=== PATIENT | male | born 1965 | race Caucasian/White ===

== ENCOUNTER 2018-12-16 19:30 | Emergency (ER) | payer OTHER, MEDICAID, SELFPAY ==
[2018-12-16 19:36] VITALS: PULSE 63; RESP 18; TEMP 36.6; O2SAT 96; BMI 24.3
--- NOTE | 2018-12-16 19:40 | DI.RAD.S_ITS ---
PROCEDURE: XR CHEST 1V INDICATIONS: chest pain TECHNIQUE: One view of the chest was acquired. COMPARISON: [facility], , XR CXR 2 VIEW, 02/25/2005, 14:21. FINDINGS: Surgical changes and devices: None. Lungs and pleura: Lungs are clear. No pleural effusions or pneumothorax. Mediastinum: Mediastinal contours appear normal. Heart size is normal. Bones and chest wall: No suspicious bony lesions. Overlying soft tissues appear unremarkable. IMPRESSION: No acute pulmonary process. Dictated by: Aparna Meyers M.D. on 12/16/2018 at 20:28 Approved by: Aparna Meyers M.D. on 12/16/2018 at 20:28
--- NOTE | 2018-12-16 19:52 | ED.CHESTPAIN ---
HPI - Chest Pain General Chief Complaint: Chest Pain Stated Complaint: CHEST PAIN Time Seen by Provider: 12/16/18 19:49 Source: patient Mode of arrival: ambulatory Limitations: no limitations History of Present Illness HPI narrative: 53-year-old male comes to the emergency department with complaint of chest pain. Patient states he felt like he got hit against the chest with a 2 x 4. Patient states he has a history of hypertension but has not taken his blood pressure medications in 3 weeks. He also has a history of COPD. He states the he does fall down some because he drinks extensively so he does not think he had any trauma but he is not sure. He states he has always had shortness of breath that is not any worse. He felt a little clammy earlier but not now. He denies any nausea or vomiting. He denies any issues with bowel movements or urination. He has not had any prior MIs or strokes. He states his mom a heart attack at the age of 32 he states his dad in his shoulder of cancer. Patient states he has had surgeries for broken bones. states he smokes a half pack daily, drinks about a 5th of vodka plus daily, denies any marijuana or illicit. He has been very stressed recently as he had to move out of his house today and is living in a hotel with his and two dogs. Related Data Home Medications Medication Instructions Recorded Confirmed ibuprofen 800 mg PO Q6H PRN 12/16/18 12/16/18 Allergies Allergy/AdvReac Type Severity Reaction Status Date / Time No Known Drug Allergies Allergy Verified 12/16/18 19:36 Review of Systems Review of Systems ROS Unobtainable: All systems reviewed & are unremarkable except as noted in HPI and below PFSH Medical History (Updated 12/16/18 @ 20:35 by Ana Flood RN) Alcohol abuse (Acute) Smoker (Acute) Family History (Updated 12/16/18 @ 20:05 by Tiffanie Sorenson DO) Mother Heart attack Social History (Updated 12/16/18 @ 20:05 by Tiffanie Sorenson DO) Smoking Status: Current every day smoker alcohol intake: current substance use type: does not use Family History (Updated 12/16/18 @ 20:05 by Tiffanie Sorenson DO) Mother Heart attack Social History (Updated 12/16/18 @ 20:05 by Tiffanie Sorenson DO) Smoking Status: Current every day smoker alcohol intake: current substance use type: does not use Exam Narrative Exam Narrative: GENERAL: Alert and oriented x three, well-nourished, well-appearing male in mild distress. HEENT: Head normocephalic, atraumatic, EOMI, pupils reactive, face symmetric, moist mucous membranes NECK: Supple, full range of motion CARDIOVASCULAR: Regular rate and rhythm without murmurs, rubs or gallops. Chest is nontender, no rashes, ecchymosis or skin changes. RESPIRATORY: Breath sounds equal bilaterally, no wheezes rales or rhonchi. ABDOMEN: Soft, nontender. Normoactive bowel sounds all 4 quadrants. No guarding or rebound, rigidity, no mass : No CVA tenderness EXTREMITIES: Normal range of motion, no clubbing or edema. Neurovascularly intact NEUROLOGICAL: Cranial nerves II through XII grossly intact. Moving all extremities SKIN: Warm, dry, no petechiae, no rashes or lesions. Initial Vital Signs Initial Vital Signs: Vital Signs Temperature 97.8 F 12/16/18 19:36 Pulse Rate 63 12/16/18 19:36 Respiratory Rate 18 12/16/18 19:36 Pulse Oximetry 96 12/16/18 19:36 Course Orders Ordered: Discontinued Medications Aspirin (Aspirin Chew) 324 mg PO NOW ONE Stop: 12/16/18 19:41 Last Admin: 12/16/18 20:22 Dose: 324 mg Documented by: TONNYARRINGCLAUDIA Heparin Sodium (Porcine) (Heparin) 4,000 unit IV NOW ONE Stop: 12/16/18 20:30 Last Admin: 12/16/18 20:33 Dose: 4,000 unit Documented by: TONNYARRINGCLAUDAI Sodium Chloride (Normal Saline 0.9%) 1,000 mls @ 150 mls/hr IV CONT ANTHONY Last Infusion: 12/16/18 21:06 Dose: 0 mls/hr Documented by: Infusion: 12/16/18 20:34 Dose: 999 mls/hr Documented by: Admin: 12/16/18 20:24 Dose: 150 mls/hr Documented by: TONNYCLE[facility] VIEW BEHAVIORAL HEALTHCLAUDIA Heparin Sodium/Dextrose (Heparin Drip) 25,000 unit in 500 mls @ 18.507 mls/hr IV CONT ANTHONY; Protocol Last Titration: 12/16/18 21:10 Dose: 0 units/kg/hr, 0 mls/hr Documented by: TONNYARRINGTO Admin: 12/16/18 20:33 Dose: 12 units/kg/hr, 18.507 mls/hr Documented by: TONNYARRINGTO Nicotine (Nicoderm) 21 mg TOP NOW ONE Stop: 12/16/18 20:14 Last Admin: 12/16/18 20:24 Dose: 21 mg Documented by: TONNYARRINGTO Nitroglycerin (Nitrostat) 0.4 mg SL [id number] PRN PRN Reason: Chest Pain Last Admin: 12/16/18 20:24 Dose: 0.4 mg Documented by: TONNYARRINGTO Vital Signs Vital signs: Vital Signs - 8 hr 12/16/18 19:36 12/16/18 20:16 12/16/18 20:32 Temperature 97.8 F Pulse Rate 63 95 H Respiratory Rate 18 15 Blood Pressure [Right Arm] 141/102 H 105/87 Pulse Oximetry 96 95 12/16/18 20:37 Temperature Pulse Rate 97 H Respiratory Rate 21 Blood Pressure [Right Arm] 116/87 Pulse Oximetry 98 MDM - Chest Pain Lab Data Attestation: I reviewed the patient's lab results. Result diagrams: 12/16/18 19:40 12/16/18 19:40 Labs: Lab Results 12/16/18 12/16/18 12/16/18 Range/Units 19:40 19:40 20:46 WBC 9.7 (4.5-11.0) X10^3/uL RBC 4.09 L (4.5-5.9) X10^6/uL Hgb 14.4 (13.5-17.5) g/dL Hct 42.0 (41-53) % MCV 102.7 H (80-100) fL MCH 35.3 H (26-34) PG MCHC 34.4 (30-36) % RDW 13.8 (11.6-14.8) % Plt Count 193 (150-400) X10^3/uL Neut % (Auto) 47.2 L (50-75) % Lymph % (Auto) 36.8 (25-40) % [place] % (Auto) 8.8 (3-14) % Eos % (Auto) 6.0 H (2-4) % Baso % (Auto) 1.2 (0-2) % Neut # (Auto) 4600 (4506-6982) /uL Lymph # (Auto) 3600 (4503-6117) /uL [place] # (Auto) 900 (0-900) /uL Eos # (Auto) 600 H (0-450) /uL Baso # (Auto) 100 (0-100) /uL Sodium 145 (137-145) mmol/L Potassium 4.1 (3.4-5.1) mmol/L Chloride 109 H (98-107) mmol/L Carbon Dioxide 27 (22-32) mmol/L BUN 16 (9-20) mg/dL Creatinine 0.70 (0.66-1.25) mg/dL Estimated GFR > 60.0 (>60) mL/min BUN/Creatinine Ratio 22.9 H (6-22) Glucose 99 (70-100) mg/dL Calcium 9.0 (8.4-10.2) mg/dL Total Bilirubin 0.3 (0.2-1.3) mg/dL AST 34 (17-59) IU/L ALT 20 L (21-72) IU/L Alkaline Phosphatase 66 (38-126) U/L Total Creatine Kinase 210 H (55-170) U/L CK-MB (CK-2) 3.67 H (<2.37) ng/mL CK-MB (CK-2) Rel Index 1.7 (1.5-5.0) % Troponin I < 0.012 (0.01-0.034) ng/mL Total Protein 7.4 (6.3-8.2) g/dL Albumin 4.3 (3.5-5.0) g/dL Globulin 3.1 (1.7-4.1) g/dL Albumin/Globulin Ratio 1.4 (1.0-2.8) Lipase 233 (23-300) U/L Urine Color Yellow Urine Appearance Clear Urine pH 7.0 (4.5-8.0) Ur Specific [place] 1.010 (1.000-1.035) Urine Protein Negative (Negative) Urine Glucose (UA) Negative (Negative) g/dL Urine Ketones Negative (NEGATIVE) Urine Occult Blood Negative (Negative) Urine Nitrate Negative (Negative) Urine Bilirubin Negative (NEGATIVE) Urine Urobilinogen 0.2 (0.2) E.U./dL Ur Leukocyte Esterase Negative (NEGATIVE) Urine RBC None seen (0-5/HPF) Urine WBC None seen (0-5/HPF) Urine Bacteria None seen (None) Ur Culture Indicated? Cult not indicated Urine Opiates Screen (Negative) Ur Oxycodone Screen (Negative) Urine Methadone Screen (Negative) Ur Barbiturates Screen (Negative) U Tricyclic Antidepress (Negative) Ur Phencyclidine Scrn (Negative) Ur Amphetamines Screen (Negative) U Methamphetamines Scrn (Negative) Ur MDMA Scrn (Ecstasy) (Negative) U Benzodiazepines Scrn (Negative) Urine Cocaine Screen (Negative) U Marijuana (THC) Screen (Negative) 12/16/18 Range/Units 20:46 WBC (4.5-11.0) X10^3/uL RBC (4.5-5.9) X10^6/uL Hgb (13.5-17.5) g/dL Hct (41-53) % MCV (80-100) fL MCH (26-34) PG MCHC (30-36) % RDW (11.6-14.8) % Plt Count (150-400) X10^3/uL Neut % (Auto) (50-75) % Lymph % (Auto) (25-40) % [place] % (Auto) (3-14) % Eos % (Auto) (2-4) % Baso % (Auto) (0-2) % Neut # (Auto) (1752-8456) /uL Lymph # (Auto) (8344-4833) /uL [place] # (Auto) (0-900) /uL Eos # (Auto) (0-450) /uL Baso # (Auto) (0-100) /uL Sodium (137-145) mmol/L Potassium (3.4-5.1) mmol/L Chloride (98-107) mmol/L Carbon Dioxide (22-32) mmol/L BUN (9-20) mg/dL Creatinine (0.66-1.25) mg/dL Estimated GFR (>60) mL/min BUN/Creatinine Ratio (6-22) Glucose (70-100) mg/dL Calcium (8.4-10.2) mg/dL Total Bilirubin (0.2-1.3) mg/dL AST (17-59) IU/L ALT (21-72) IU/L Alkaline Phosphatase (38-126) U/L Total Creatine Kinase (55-170) U/L CK-MB (CK-2) (<2.37) ng/mL CK-MB (CK-2) Rel Index (1.5-5.0) % Troponin I (0.01-0.034) ng/mL Total Protein (6.3-8.2) g/dL Albumin (3.5-5.0) g/dL Globulin (1.7-4.1) g/dL Albumin/Globulin Ratio (1.0-2.8) Lipase (23-300) U/L Urine Color Urine Appearance Urine pH (4.5-8.0) Ur Specific [place] (1.000-1.035) Urine Protein (Negative) Urine Glucose (UA) (Negative) g/dL Urine Ketones (NEGATIVE) Urine Occult Blood (Negative) Urine Nitrate (Negative) Urine Bilirubin (NEGATIVE) Urine Urobilinogen (0.2) E.U./dL Ur Leukocyte Esterase (NEGATIVE) Urine RBC (0-5/HPF) Urine WBC (0-5/HPF) Urine Bacteria (None) Ur Culture Indicated? Urine Opiates Screen Negative (Negative) Ur Oxycodone Screen Negative (Negative) Urine Methadone Screen Negative (Negative) Ur Barbiturates Screen Negative (Negative) U Tricyclic Antidepress Negative (Negative) Ur Phencyclidine Scrn Negative (Negative) Ur Amphetamines Screen Negative (Negative) U Methamphetamines Scrn Negative (Negative) Ur MDMA Scrn (Ecstasy) Negative (Negative) U Benzodiazepines Scrn Negative (Negative) Urine Cocaine Screen Negative (Negative) U Marijuana (THC) Screen Negative (Negative) Imaging Data Chest x-ray: My impression: nap, no pneumothorax, no rib fractures. No pleural effusion. Radiologist's impression: Kory Payne 53 M [address] [address] XRay Report Signed Patient: [facility]Kory [facility]#: [id number] : 1965Acct:[id number] Age/Sex: 53 / MDate of Service: 12/16/18 Loc: ED Accession Number: [id number] Procedure: XR chest 1V Ordering Provider: Mank,Tiffanie C D.O. PROCEDURE: XR CHEST 1V INDICATIONS: chest pain TECHNIQUE: One view of the chest was acquired. COMPARISON: [facility], , XR CXR 2 VIEW, 02/25/2005, 14:21. FINDINGS: Surgical changes and devices: None. Lungs and pleura: Lungs are clear. No pleural effusions or pneumothorax. Mediastinum: Mediastinal contours appear normal. Heart size is normal. Bones and chest wall: No suspicious bony lesions. Overlying soft tissues appear unremarkable. IMPRESSION: No acute pulmonary process. Dictated by: Aparna Meyers M.D. on 12/16/2018 at 20:28 Approved by: Aparna Meyers M.D. on 12/16/2018 at 20:28 ECG Data Attestation: I personally reviewed and interpreted this ECG as follows: Prior ECG tracings: not available for review Interpretation: Sinus rhythm rate of 99 P are 149 QRS of [address] elevation V1 V2 and V3. On repeat EKG patient has rate of 90, pr 144 QRS of 106 and QTC [address] elevation in V1 2 and 3. MDM Narrative Medical decision making narrative: Spoke with patient, he does not want to be in the hospital tonight we had a long discussion regarding the fact that he is having a STEMI and the longer that he does not get a stent the more his heart will and he could potentially tonight. He is asking for us to talk with him and his who is walking here and is about 5 minutes away. Patient is reveals aspirin, he is initially refusing nitro sublingual. Heparin bolus was started 4000 unit is he is 77 kilos. His EKG was reviewed with Dr. Chavez who was on our Cardiology on-call list. She states it is a STEMI, she states she sent images to Dr. Muñoz who is on for also EKGs were faxed and I spoke with Dr. Jordan @ [facility]. After discussion with patient and his significant other, he is willing to transfer. Dr. Chavez and I discussed with her the reason for delay. Critical Care Time Critical Care Time Critical Care Time: Yes Total Critical Care Time: 45 Attestation: The high probability of a clinically significant, sudden or life threatening deterioration of the [cardiac] system(s) required my full and direct attention, intervention and personal management. The aggregate critical care time was [] minutes. This time is in addition to time spent performing reported procedures but includes the following: [x] Data Review and interpretation [x] Patient assessment and monitoring of vital signs [x] Documentation [x] Medication orders and management Discharge Plan Departure Patient Disposition: [facility] Clinical Impression: ST elevation myocardial infarction (STEMI) Discharge Date/Time: 12/16/18 21:14 Prescriptions: No Action ibuprofen 800 mg Tablet 800 mg PO Q6H PRN (Reason: Pain, Mild) RF: 0
[2018-12-16 20:00] LABS: Add Manual Diff / Slide Review NO; Basophils Absolute Auto 100 /uL (0-100); Basophils Percent Auto 1.2 % (0-2); Eosinophils Absolute Auto 600 /uL (0-450); Hemoglobin 14.4 g/dL (13.5-17.5); Lymphocytes Absolute Auto 3600 /uL (1100-4500); Lymphocytes Percent Auto 36.8 % (25-40); Mean Corpuscular HGB Conc 34.4 % (30-36); Mean Corpuscular Hemoglobin 35.3 PG (26-34); Mean Corpuscular Volume 102.7 fL (80-100); Monocytes Absolute Auto 900 /uL (0-900); Monocytes Percent Auto 8.8 % (3-14); Neutrophils Absolute Auto 4600 /uL (1500-7000); Neutrophils Percent Auto 47.2 % (50-75); Platelet Count 193 X10^3/uL (150-400); Red Blood Cell Count 4.09 X10^6/uL (4.5-5.9); Red Cell Distribution Width 13.8 % (11.6-14.8); White Blood Cell Count 9.7 X10^3/uL (4.5-11.0)
[2018-12-16 20:05] LABS: Alanine Aminotransferase 20 IU/L (21-72); Albumin 4.3 g/dL (3.5-5.0); Albumin Globulin Ratio 1.4 (1.0-2.8); Alkaline Phosphatase 66 U/L (38-126); Aspartate Aminotransferase 34 IU/L (17-59); BUN Creatinine Ratio 22.9 (6-22); Bilirubin Total 0.3 mg/dL (0.2-1.3); Blood Urea Nitrogen 16 mg/dL (9-20); Carbon Dioxide 27 mmol/L (22-32); Chloride 109 mmol/L (98-107); Creatine Kinase 210 U/L (55-170); Estimated Glomerular Filt Rate > 60.0 mL/min (>60); Globulin 3.1 g/dL (1.7-4.1); Glucose 99 mg/dL (70-100); HEMOLYSIS < 15 (0-50); Lipase 233 U/L (23-300); Potassium 4.1 mmol/L (3.4-5.1); Sodium 145 mmol/L (137-145); Total Protein 7.4 g/dL (6.3-8.2)
[2018-12-16 20:16] VITALS: BP 141/102
[2018-12-16 20:17] LABS: Troponin I < 0.012 ng/mL (0.01-0.034)
[2018-12-16 20:22] LABS: CKMB % Relative Index 1.7 % (1.5-5.0); Creatine Kinase MB 3.67 ng/mL (<2.37)
[2018-12-16] MEDS: ASPIRIN 81 MG CHEW TAB 324 MG PO (20:22)
[2018-12-16] MEDS: NICOTINE 21 MG PATCH TOP (20:24)
[2018-12-16] MEDS: SODIUM CHLORIDE 0.9% 1,000 ML 150 ML IV (20:24)
[2018-12-16] MEDS: NITROGLYCERIN 0.4 MG SL TAB SL (20:24)
[2018-12-16 20:32] VITALS: BP 105/87; PULSE 95; RESP 15; O2SAT 95
[2018-12-16] MEDS: HEPARIN DRIP 25,000 UNIT/500 ML IV.SOLN 18.507 UNIT IV (20:33)
[2018-12-16] MEDS: HEPARIN 5,000 UNIT/ML VIAL 4000 UNIT IV (20:33)
[2018-12-16 20:37] VITALS: BP 116/87; PULSE 97; RESP 21; O2SAT 98
[2018-12-16 20:39] VITALS: BP 115/84; PULSE 96; RESP 15; O2SAT 95
[2018-12-16 20:50] VITALS: BP 130/87; PULSE 87; RESP 16; O2SAT 96
[2018-12-16 21:00] LABS: Bacteria Urine None Seen; RBC Urine None Seen (0-5/HPF); WBC Urine None Seen (0-5/HPF)
[2018-12-16 21:01] LABS: Appearance Urine UA CLEAR; Bilirubin Urine UA NEGATIVE (NEGATIVE); Color Urine UA YELLOW; Glucose Urine UA NEGATIVE (Negative); Ketones Urine UA NEGATIVE (NEGATIVE); Leukocyte Esterase Urine UA NEGATIVE (NEGATIVE); Nitrite Urine UA NEGATIVE (Negative); Occult Blood Urine UA NEGATIVE (Negative); Protein Urine UA NEGATIVE (Negative); Urobilinogen Urine UA 0.2 E.U./dL (0.2)
[2018-12-16 21:08] LABS: Urine Tetrahydrocannabinol Negative (Negative)
[2018-12-16 21:09] LABS: Culture Indicated Urine Cult Not Indicated; Urine Amphetamines Negative (Negative); Urine Barbiturates Negative (Negative); Urine Benzodiazepines Negative (Negative); Urine Cocaine Negative (Negative); Urine MDMA Negative (Negative); Urine Methadone Negative (Negative); Urine Methamphetamines Negative (Negative); Urine Morphine/Opi cutoff 2000 Negative (Negative); Urine Oxycodone Negative (Negative); Urine Phencyclidine Negative (Negative); Urine Tricyclic Antidepressant Negative (Negative)
--- NOTE | 2018-12-16 21:13 | PC.NURSE ---
pt transferred to [facility] bundle tier and labeler via ambulance, d/c'd with fluid bolus and heparin drip running for transport
== END 2018-12-16 21:14 | disposition short-term general hospital (02) ==
PROVIDERS: Emergency Provider Emergency Medicine
DX: I21.3 ST elevation (STEMI) myocardial infarction of unspecified site (principal)
CPT/HCPCS: 36591; 71045; 80053; 80305; 81001; 82550; 82553; 83690; 84484; 85025; 93005; 96365; 96375; 99285; 99291; J1644

== ENCOUNTER 2019-05-20 08:22 | Emergency (ER) | payer SELFPAY ==
[2019-05-20 08:30] VITALS: BP 144/97; PULSE 107; RESP 19; TEMP 36.9; O2SAT 100
--- NOTE | 2019-05-20 08:35 | ED.GENADULT ---
HPI - General Adult General Chief complaint: Dental/Oral Stated complaint: Rt side tooth ache, cold symptoms [id number] Time Seen by Provider: 05/20/19 08:25 Source: patient Mode of arrival: Ambulatory Limitations: no limitations History of Present Illness HPI narrative: 53-year-old male with known poor dentition states that his dental insurance will kick in at the end of this week. Has had dental infections in the past. He also states that he has had ?flu-like symptoms? for the past month. Has not tried anything for his dental issues. Related Data Home Medications Medication Instructions Recorded Confirmed ibuprofen 800 mg PO Q6H PRN 12/16/18 12/16/18 Previous Rx's Medication Instructions Recorded albuterol sulfate 2 puff INHALATION QID PRN #18 gram 05/20/19 penicillin V potassium 500 mg PO QID 7 Days #28 tab 05/20/19 Allergies Allergy/AdvReac Type Severity Reaction Status Date / Time No Known Drug Allergies Allergy Verified 05/20/19 08:33 Review of Systems Constitutional Constitutional: Reports fatigue and Reports fever(s) (Subjective) ENT Ears, Nose, Mouth, and Throat: Denies sore throat Comments: Right lower dental pain Cardiovascular Cardiovascular: Denies chest pain, Denies palpitations and Denies dyspnea Respiratory Respiratory: Denies dyspnea Gastrointestinal Gastrointestinal: Denies abdominal pain and Denies nausea Musculoskeletal Musculoskeletal: Denies myalgias and Denies arthralgias Integumentary/Breasts Skin/Breast: Denies rash Endocrine Endocrine: Reports fatigue and Denies palpitations Hematologic/Lymphatic Hematologic/Lymphatic: Denies easy bruising Patient History Medical History Alcohol abuse (Acute) Smoker (Acute) Family History (Updated 12/16/18 @ 20:05 by Tiffanie Sorenson DO) Mother Heart attack Social History Smoking Status: Current every day smoker alcohol intake: current substance use type: does not use Smoking Status: Current every day smoker tobacco type: cigarettes alcohol intake frequency: 3 or more drinks per day Substance Use Type: does not use Exam Initial Vital Signs Initial Vital Signs: Vital Signs Temperature 98.5 F 05/20/19 08:30 Pulse Rate 107 H 05/20/19 08:30 Respiratory Rate 19 05/20/19 08:30 Blood Pressure 144/97 H 05/20/19 08:30 Pulse Oximetry 100 05/20/19 08:30 Const General: cooperative and comfortable Limitations: mental status not altered HENMT Head: normal to inspection and normocephalic Mouth: oral mucosae normal and moist mucous membranes Teeth and gingiva: caries and poor dentition Resp Effort & Inspection: normal respiratory effort Auscultation: clear to auscultation bilaterally Cardio Rate: tachycardic GI Inspection: non-distended Palpation: soft Skin Lesions: no lesions Rashes: no rashes Neuro General: alert, awake and oriented x3 Cognition: normal cognition Speech: speech normal Extrem General: normal to inspection and capillary refill normal Course Vital Signs Vital signs: Vital Signs - 8 hr 05/20/19 08:30 Temperature 98.5 F Pulse Rate 107 H Respiratory Rate 19 Blood Pressure 144/97 H Pulse Oximetry 100 Medical Decision Making MDM Narrative Medical decision making narrative: No defined abscess seen on exam. Does have poor dentition with fractured teeth. Will send home with antibiotics. He states that he has insurance kicking and at the end of next week. Also refilled his albuterol inhaler. Has a history of COPD. Lungs are clear today. Patient was given return precautions. He expressed understanding and agreement with plan. Discharge Plan Departure Patient Disposition: Home Clinical Impression: Fracture of tooth Qualifiers: Encounter type: initial encounter Instructions: Tooth Decay Prevention (Alternative Therapy), Tooth Decay Activity Restrictions/Additional Instructions: Take the medications as directed. You do need to see a dentist. You can take Tylenol and/or ibuprofen for any pain. Return to the emergency department for any new or worsening symptoms Prescriptions: New albuterol sulfate 90 mcg/actuation HFA aerosol inhaler 2 puff INHALATION QID PRN (Reason: shortness of breath or wheezing) Qty: 18 RF: 0 penicillin V potassium 500 mg tablet 500 mg PO QID 7 Days Qty: 28 RF: 0 No Action ibuprofen 800 mg Tablet 800 mg PO Q6H PRN (Reason: Pain, Mild) RF: 0
== END 2019-05-20 09:13 | disposition home or self-care (01) ==
LOC: ED 09:03
PROVIDERS: Emergency Provider Emergency Medicine
DX: S02.5XXA Fracture of tooth (traumatic), initial encounter for closed fracture (principal)
CPT/HCPCS: 99281; 99283

== ENCOUNTER 2019-07-01 09:17 | Emergency (ER) | payer OTHER, SELFPAY ==
[2019-07-01 09:25] VITALS: BP 173/110; PULSE 89; RESP 20; TEMP 36.7; O2SAT 97; BMI 24.3
--- NOTE | 2019-07-01 09:58 | DI.RAD.S_ITS ---
PROCEDURE: XR CHEST 1V INDICATIONS: COPD, [place], SOB, Cough TECHNIQUE: One view of the chest was acquired. COMPARISON: [facility], RG, XR CXR 2 VIEW, 02/25/2005, 14:21. [facility], CR, XR CHEST 1V, 12/16/2018, 19:55. FINDINGS: Surgical changes and devices: None. Lungs and pleura: Lungs are clear. No pleural effusions or pneumothorax. Mediastinum: Mediastinal contours appear normal. Heart size is normal. Bones and chest wall: No suspicious bony lesions. Overlying soft tissues appear unremarkable. IMPRESSION: Portable chest within normal limits. Dictated by: Gerard Pratt M.D. on 07/01/2019 at 10:03 Approved by: Gerard Pratt M.D. on 07/01/2019 at 10:04
--- NOTE | 2019-07-01 09:59 | ED.URI ---
HPI - URI/Sore Throat General Chief Complaint: Upper Respiratory Symptoms Stated Complaint: possible covid19 virus Time Seen by Provider: 07/01/19 09:42 Source: patient Mode of arrival: Ambulatory History of Present Illness HPI Narrative: The patient is a 54-year-old male comes in to the emergency department complaining of shortness of breath with dyspnea on exertion. He has developed progressive weakness and fatigue and feels as though his legs were going to collapse. He admits to history of smoking cigarettes and a longstanding history of COPD. The patient has had worse shortness of breath and difficulty in breathing over the last 4 days prior to admission. Most of the shortness of breath is with exertion. He admits to drinking alcohol. He has had no fever or sweats but has had intermittent chills. He is very concerned because he works in food production and was told that if he had any of the symptoms he needed to leave work and be examined. He complains that his bones feel like they are aching and that his teeth even ache. He denies that he has had any travel outside of the [place], any new or high fever, and he has not been exposed to anyone that he knows has arm covered 19. He has had some mild headache with sinus congestion no significant sore throat. His cough is intermittently productive of a clear sputum. He has had mild chest discomfort with coughing. He has not passed out but has had some mild dizziness with racing of his heart. He has had mild abdominal cramps with nausea mild diarrhea without melena or hematochezia but no vomiting. He has had no urinary symptoms. Related Data Home Medications Medication Instructions Recorded Confirmed ibuprofen 800 mg PO Q6H PRN 12/16/18 12/16/18 Previous Rx's Medication Instructions Recorded albuterol sulfate 2 puff INHALATION QID PRN #18 gram 05/20/19 albuterol sulfate 2 puff INHALATION Q4-6H PRN #8.5 07/01/19 gram doxycycline hyclate 100 mg PO BID #14 cap 07/01/19 prednisone 60 mg PO DAILY #15 tab 07/01/19 Allergies Allergy/AdvReac Type Severity Reaction Status Date / Time No Known Drug Allergies Allergy Verified 05/20/19 08:33 Review of Systems Review of Systems Narrative: Review of systems are all negative except for those mentioned in the history of present illness. Patient History Medical History Alcohol abuse (Acute) Smoker (Acute) Family History Mother Heart attack Social History Smoking Status: Former smoker alcohol intake: current substance use type: does not use Smoking Status: Former smoker tobacco type: cigarettes alcohol intake frequency: 3 or more drinks per day Alcohol type: hard liquor Substance Use Type: does not use Exam Narrative Exam Narrative: PHYSICAL EXAM: CONSTITUTIONAL: Awake, Alert, Oriented, Coherent, Cooperative in NAD. Does not appear toxic or ill. HEAD: AT/NC EENT: PERRL, FROM of eyes, no discharge, Oral mucosa is moist and pink, posterior pharynx is without erythema or exudate. NECK: Supple, no obvious JVD, Trachea is midline without stridor, no palpable LN or masses. SPINE: No gross deformity, no palpable tenderness of the cervical, thoracic, lumbar or sacral spine. No CVA tenderness. THORAX: No deformity, retractions, chest wall tenderness, LUNGS: Markedly decreased breath sounds bilaterally with inspiratory squeaks and wheezes and a few scattered expiratory wheezes and rhonchi. HEART: Normal heart tones, regular rhythm and rate without murmur. ABDOMEN: Soft, non-tender, normal bowel sounds without guarding, rebound, rigidity or palpable mass or organomegaly. EXTREMITIES: No edema, cyanosis, deformity or tenderness. SKIN: No rash, bruising, petechiae or purpura. NEURO: Awake, alert, oriented, conversive, cranial nerves II-XII are symmetrical and normal, moves all 4 extremities and is ambulatory Initial Vital Signs Initial Vital Signs: Vital Signs Temperature 98.0 F 07/01/19 09:25 Pulse Rate 89 07/01/19 09:25 Respiratory Rate 20 07/01/19 09:25 Blood Pressure 173/110 H 07/01/19 09:25 Pulse Oximetry 97 07/01/19 09:25 Course Course Course Narrative: 12:04 Patient's influenza swabs remain pending. Chest x-ray reveals no evidence of a pneumonia. 1221: The patient's influenza a and B are both negative. A respiratory panel will be sent off on the patient as well as Covid 19. The patient will be treated as though he is having a flare-up of his COPD and will be placed in self quarantine for the next 5 days and to follow-up with his primary care physician for the results of his respiratory panel and Covid 19. He will be given a work excuse for the next 5 days. Orders Ordered: Discontinued Medications Albuterol/Ipratropium (Duoneb) 3 ml INH NOW ONE Stop: 07/01/19 09:58 Last Admin: 07/01/19 11:04 Dose: 3 ml Documented by: DONTE Methylprednisolone (Solu-Medrol 125 Mg Vial) 125 mg IV NOW ONE Stop: 07/01/19 09:58 Last Admin: 07/01/19 12:39 Dose: Not Given Documented by: ASHLEY Nicotine (Nicoderm) 21 mg TOP NOW ONE Stop: 07/01/19 11:19 Last Admin: 07/01/19 11:28 Dose: 21 mg Documented by: ASHLEY Vital Signs Vital signs: Vital Signs - 8 hr 07/01/19 09:25 07/01/19 11:04 Temperature 98.0 F Pulse Rate 89 86 Respiratory Rate 20 20 Blood Pressure 173/110 H Pulse Oximetry 97 98 MDM - URI/Sore Throat Lab Data Result diagrams: 07/01/19 11:03 07/01/19 11:03 Labs: Lab Results 07/01/19 07/01/19 07/01/19 Range/Units 11:03 11:03 11:03 WBC 8.3 (4.5-11.0) X10^3/uL RBC 4.29 L (4.5-5.9) X10^6/uL Hgb 14.9 (13.5-17.5) g/dL Hct 43.8 (41-53) % MCV 102.0 H (80-100) fL MCH 34.7 H (26-34) PG MCHC 34.0 (30-36) % RDW 13.6 (11.6-14.8) % Plt Count 174 (150-400) X10^3/uL Neut % (Auto) 48.6 L (50-75) % Lymph % (Auto) 29.3 (25-40) % [place] % (Auto) 15.2 H (3-14) % Eos % (Auto) 5.7 H (2-4) % Baso % (Auto) 1.2 (0-2) % Neut # (Auto) 4000 (0005-1142) /uL Lymph # (Auto) 2400 (9714-7551) /uL [place] # (Auto) 1300 H (0-900) /uL Eos # (Auto) 500 H (0-450) /uL Baso # (Auto) 100 (0-100) /uL Sodium 143 (137-145) mmol/L Potassium 4.0 (3.4-5.1) mmol/L Chloride 106 (98-107) mmol/L Carbon Dioxide 27 (22-32) mmol/L BUN 11 (9-20) mg/dL Creatinine 0.54 L (0.66-1.25) mg/dL Estimated GFR > 60.0 (>60) mL/min BUN/Creatinine Ratio 20.4 (6-22) Glucose 98 (70-100) mg/dL Calcium 9.8 (8.4-10.2) mg/dL Total Bilirubin 0.4 (0.2-1.3) mg/dL AST 47 (17-59) IU/L ALT 25 (<50) IU/L Alkaline Phosphatase 73 (38-126) U/L Total Protein 7.9 (6.3-8.2) g/dL Albumin 4.5 (3.5-5.0) g/dL Globulin 3.4 (1.7-4.1) g/dL Albumin/Globulin Ratio 1.3 (1.0-2.8) Chlamy pneumoniae PCR (Not Detect) Adenovirus (PCR) (Not Detect) B.parapertussis DNA PCR (Not Detect) Coronavirus OC43 (PCR) (Not Detect) Coronavirus HKU1 (PCR) (Not Detect) Coronavirus 229E (PCR) (Not Detect) Coronavirus NL63 (PCR) (Not Detect) Human Metapneumovir PCR (Not Detect) Influenza A (RT-PCR) Flu a negative (NEGATIVE) Influenza Type A (PCR) (Not Detect) Influenza B (RT-PCR) Flu b negative (NEGATIVE) Influenza Type B (PCR) (Not Detect) M. pneumoniae (PCR) (Not Detect) Parainfluenza 1 (PCR) (Not Detect) Parainfluenza 2 (PCR) (Not Detect) Parainfluenza 3 (PCR) (Not Detect) Parainfluenza 4 (PCR) (Not Detect) RSV (PCR) (Not Detect) Entero/Rhino (PCR) (Not Detect) 07/01/19 Range/Units 11:36 WBC (4.5-11.0) X10^3/uL RBC (4.5-5.9) X10^6/uL Hgb (13.5-17.5) g/dL Hct (41-53) % MCV (80-100) fL MCH (26-34) PG MCHC (30-36) % RDW (11.6-14.8) % Plt Count (150-400) X10^3/uL Neut % (Auto) (50-75) % Lymph % (Auto) (25-40) % [place] % (Auto) (3-14) % Eos % (Auto) (2-4) % Baso % (Auto) (0-2) % Neut # (Auto) (6696-2703) /uL Lymph # (Auto) (6222-5368) /uL [place] # (Auto) (0-900) /uL Eos # (Auto) (0-450) /uL Baso # (Auto) (0-100) /uL Sodium (137-145) mmol/L Potassium (3.4-5.1) mmol/L Chloride (98-107) mmol/L Carbon Dioxide (22-32) mmol/L BUN (9-20) mg/dL Creatinine (0.66-1.25) mg/dL Estimated GFR (>60) mL/min BUN/Creatinine Ratio (6-22) Glucose (70-100) mg/dL Calcium (8.4-10.2) mg/dL Total Bilirubin (0.2-1.3) mg/dL AST (17-59) IU/L ALT (<50) IU/L Alkaline Phosphatase (38-126) U/L Total Protein (6.3-8.2) g/dL Albumin (3.5-5.0) g/dL Globulin (1.7-4.1) g/dL Albumin/Globulin Ratio (1.0-2.8) Chlamy pneumoniae PCR Not detected (Not Detect) Adenovirus (PCR) Not detected (Not Detect) B.parapertussis DNA PCR Not detected (Not Detect) Coronavirus OC43 (PCR) Not detected (Not Detect) Coronavirus HKU1 (PCR) Not detected (Not Detect) Coronavirus 229E (PCR) Not detected (Not Detect) Coronavirus NL63 (PCR) Not detected (Not Detect) Human Metapneumovir PCR Not detected (Not Detect) Influenza A (RT-PCR) (NEGATIVE) Influenza Type A (PCR) Not detected (Not Detect) Influenza B (RT-PCR) (NEGATIVE) Influenza Type B (PCR) Not detected (Not Detect) M. pneumoniae (PCR) Not detected (Not Detect) Parainfluenza 1 (PCR) Not detected (Not Detect) Parainfluenza 2 (PCR) Not detected (Not Detect) Parainfluenza 3 (PCR) Not detected (Not Detect) Parainfluenza 4 (PCR) Not detected (Not Detect) RSV (PCR) Not detected (Not Detect) Entero/Rhino (PCR) Not detected (Not Detect) Discharge Plan Departure Patient Disposition: Home Clinical Impression: Acute dyspnea, Cough, COPD exacerbation Discharge Date/Time: 07/01/19 12:47 Instructions: DI for Chronic Obstructive Pulmonary Disease, DI for Cough -- Adult, DI for Shortness of Breath Activity Restrictions/Additional Instructions: 1. Off work for the next 5 days on self quarantine. Of 5 day work excuse 2. Follow-up with your primary care physician to be re-evaluated in 4-5 days and to receive the results of your respiratory panel and covered 19 swab. 3. Prednisone 60 mg per day for the next 5 days, albuterol inhaler, doxycycline 100 mg twice a day for the next 7 days. 4. Return to the emergency department if you develop worsening chest pain, racing of your heart, feeling faint or passing out, high fever. Otherwise follow-up with your primary care physician. Prescriptions: New albuterol sulfate 90 mcg/actuation HFA aerosol inhaler 2 puff INHALATION Q4-6H PRN (Reason: shortness of breath or wheezing) Qty: 8.5 RF: 0 prednisone 20 mg tablet 60 mg PO DAILY Qty: 15 RF: 0 doxycycline hyclate 100 mg capsule 100 mg PO BID Qty: 14 RF: 0 No Action albuterol sulfate 90 mcg/actuation HFA aerosol inhaler 2 puff INHALATION QID PRN (Reason: shortness of breath or wheezing) Qty: 18 RF: 0 ibuprofen 800 mg Tablet 800 mg PO Q6H PRN (Reason: Pain, Mild) RF: 0 Stand Alone Forms: Work Release Note
[2019-07-01 11:04] VITALS: PULSE 86; RESP 20; O2SAT 98
[2019-07-01] MEDS: ALBUTEROL/IPRATROPIUM 3 ML AMPUL INH (11:04)
[2019-07-01 11:16] LABS: Add Manual Diff / Slide Review NO; Basophils Absolute Auto 100 /uL (0-100); Basophils Percent Auto 1.2 % (0-2); Eosinophils Absolute Auto 500 /uL (0-450); Eosinophils Percent Auto 5.7 % (2-4); Hematocrit 43.8 % (41-53); Hemoglobin 14.9 g/dL (13.5-17.5); Lymphocytes Absolute Auto 2400 /uL (1100-4500); Lymphocytes Percent Auto 29.3 % (25-40); Mean Corpuscular Hemoglobin 34.7 PG (26-34); Monocytes Absolute Auto 1300 /uL (0-900); Monocytes Percent Auto 15.2 % (3-14); Neutrophils Absolute Auto 4000 /uL (1500-7000); Neutrophils Percent Auto 48.6 % (50-75); Platelet Count 174 X10^3/uL (150-400); Red Blood Cell Count 4.29 X10^6/uL (4.5-5.9); Red Cell Distribution Width 13.6 % (11.6-14.8); White Blood Cell Count 8.3 X10^3/uL (4.5-11.0)
[2019-07-01] MEDS: NICOTINE 21 MG PATCH TOP (11:28)
[2019-07-01 11:32] LABS: Alanine Aminotransferase 25 IU/L (<50); Albumin 4.5 g/dL (3.5-5.0); Albumin Globulin Ratio 1.3 (1.0-2.8); Alkaline Phosphatase 73 U/L (38-126); Aspartate Aminotransferase 47 IU/L (17-59); BUN Creatinine Ratio 20.4 (6-22); Bilirubin Total 0.4 mg/dL (0.2-1.3); Blood Urea Nitrogen 11 mg/dL (9-20); Calcium 9.8 mg/dL (8.4-10.2); Carbon Dioxide 27 mmol/L (22-32); Chloride 106 mmol/L (98-107); Estimated Glomerular Filt Rate > 60.0 mL/min (>60); Globulin 3.4 g/dL (1.7-4.1); Glucose 98 mg/dL (70-100); HEMOLYSIS 36 (0-50); Sodium 143 mmol/L (137-145); Total Protein 7.9 g/dL (6.3-8.2)
[2019-07-01 12:01] LABS: Influenza A - CEPHEID Flu A NEGATIVE (NEGATIVE); Influenza B - CEPHEID Flu B NEGATIVE (NEGATIVE)
[2019-07-01 12:46] VITALS: BP 156/103; PULSE 85; RESP 18; O2SAT 99
[2019-07-01 17:02] LABS: Adenovirus Not Detected (Not Detect); Bordetella pertussis Not Detected (Not Detect); Chlamydophila pneumoniae Not Detected (Not Detect); Coronavirus 229E Not Detected (Not Detect); Coronavirus HKU1 Not Detected (Not Detect); Coronavirus NL 63 Not Detected (Not Detect); Coronavirus OC43 Not Detected (Not Detect); Human Metapneumovirus Not Detected (Not Detect); Human Rhinovirus/Enterovirus Not Detected (Not Detect); Influenza A Not Detected (Not Detect); Influenza B Not Detected (Not Detect); Mycoplasma pneumoniae Not Detected (Not Detect); Parainfluenza Virus 1 Not Detected (Not Detect); Parainfluenza Virus 2 Not Detected (Not Detect); Parainfluenza Virus 3 Not Detected (Not Detect); Parainfluenza Virus 4 Not Detected (Not Detect); Respiratory Syncytial Virus Not Detected (Not Detect)
[2019-07-06 08:35] LABS: COVID19 Sendout Not Detected (Not Detected)
== END 2019-07-01 12:47 | disposition home or self-care (01) ==
PROVIDERS: Emergency Provider Emergency Medicine
DX: Z03.818 Encounter for observation for suspected exposure to other biological agents ruled out (principal); R06.00 Dyspnea, unspecified; R05 Cough; J44.1 Chronic obstructive pulmonary disease with (acute) exacerbation
CPT/HCPCS: 36415; 71045; 80053; 85025; 87502; 87633; 87635; 94640; 99284

== ENCOUNTER 2019-07-15 21:21 | Emergency (ER) | payer OTHER, SELFPAY ==
[2019-07-15 21:37] VITALS: BP 156/97; PULSE 104; RESP 18; TEMP 37; O2SAT 97; BMI 25.1
--- NOTE | 2019-07-15 21:38 | DI.RAD.S_ITS ---
PROCEDURE: XR CHEST 1V INDICATIONS: cough, SOB TECHNIQUE: One view of the chest was acquired. COMPARISON: [facility], CR, XR CHEST 1V, 07/01/2019, 10:49. FINDINGS: Surgical changes and devices: None. Lungs and pleura: Lungs are clear. No pleural effusions or pneumothorax. Mediastinum: Mediastinal contours appear normal. Heart size is normal. Bones and chest wall: No suspicious bony lesions. Overlying soft tissues appear unremarkable. IMPRESSION: No acute cardiopulmonary disease process. Dictated by: Katerina Josue MD, PhD on 07/15/2019 at 22:01 Approved by: Katerina Josue MD, PhD on 07/15/2019 at 22:01
--- NOTE | 2019-07-15 21:38 | ED_ITS ---
HPI - URI/Sore Throat General Chief Complaint: Upper Respiratory Symptoms Stated Complaint: cough, worked with 2 people who have COVID19 Time Seen by Provider: 07/15/19 21:22 Source: patient Mode of arrival: Ambulatory Limitations: no limitations History of Present Illness HPI Narrative: 54-year-old male former smoker with history of COPD presents for fear of possible COVID-19. He was seen and had a very thorough evaluation on June 30 under similar circumstances and had a swab which was negative. He denies any new symptoms since then and has no fever. He has had a persistence mild dry cough in the occasional sore throat. Patient states he may have been exposed to persons that tested positive in the work place but thinks he had already stopped going to work before being exposed to, he is unclear. Denies any travel. He denies GI symptoms such as nausea, vomiting or diarrhea. He denies any change in his ability to smell MD Complaint: cough, sore throat, rhinorrhea and nasal congestion Onset (ago): week(s) Duration: constant Severity: mild Relieving factors: nothing Exacerbating factors: nothing Description of mucous: clear Able to tolerate fluids by mouth: Yes Context: sick contacts Treatments prior to arrival: none Related Data Home Medications Medication Instructions Recorded Confirmed ibuprofen 800 mg PO Q6H PRN 12/16/18 12/16/18 Previous Rx's Medication Instructions Recorded albuterol sulfate 2 puff INHALATION QID PRN #18 gram 05/20/19 albuterol sulfate 2 puff INHALATION Q4-6H PRN #8.5 07/01/19 gram doxycycline hyclate 100 mg PO BID #14 cap 07/01/19 prednisone 60 mg PO DAILY #15 tab 07/01/19 Allergies Allergy/AdvReac Type Severity Reaction Status Date / Time No Known Drug Allergies Allergy Verified 05/20/19 08:33 Review of Systems Constitutional Constitutional: Denies chills, Denies fatigue, Denies fever(s), Denies frequent falls, Denies lethargy and Denies weakness Eyes Eyes: Denies change in vision, Denies eye discharge, Denies irritation and Denies loss of vision ENT Ears, Nose, Mouth, and Throat: Denies change in voice, Denies dizziness, Denies neck pain, Reports sore throat and Denies throat swelling Cardiovascular Cardiovascular: Denies chest pain, Denies irregular heart rhythm, Denies lightheadedness, Denies palpitations, Denies dyspnea, Denies dyspnea on exertion and Denies orthopnea Respiratory Respiratory: Reports cough, Denies dyspnea, Denies dyspnea on exertion and Denies wheezing Gastrointestinal Gastrointestinal: Denies abdominal pain, Denies change in bowel habits, Denies diarrhea, Denies nausea and Denies vomiting Genitourinary Genitourinary: Denies hematuria, Denies flank pain, Denies urinary incontinence and Denies urinary urgency Musculoskeletal Musculoskeletal: Denies back pain, Denies muscle weakness, Denies neck pain, Denies numbness and Denies tingling Integumentary/Breasts Skin/Breast: Denies pruritus, Denies erythema, Denies rash and Denies wounds Neurologic Neurologic: Denies behavioral changes, Denies confusion, Denies dizziness, Denies frequent falls, Denies loss of vision, Denies numbness, Denies tingling and Denies weakness Psychiatric Psychiatric: Denies anxiety, Denies behavioral changes, Denies confusion, Denies depression, Denies homicidal ideation and Denies suicidal ideation Endocrine Endocrine: Denies fatigue, Denies flushing and Denies palpitations Hematologic/Lymphatic Hematologic/Lymphatic: Denies easy bruising Allergic/Immunologic Allergic/Immunologic: Denies urticaria, Denies throat swelling and Denies wheezing Patient History Medical History Alcohol abuse (Acute) Smoker (Acute) Family History Mother Heart attack Social History Smoking Status: Former smoker alcohol intake: current substance use type: does not use Smoking Status: Former smoker tobacco type: cigarettes alcohol intake frequency: 3 or more drinks per day Alcohol type: hard liquor Substance Use Type: does not use Exam Narrative Exam Narrative: GENERAL: [54] year old patient appears stated age. Well- nourished, well-developed patient, in no obvious distress with stable vital signs HEAD: Atraumatic. Normocephalic. EYES: Pupils equal round and reactive. Extraocular motions intact. No scleral icterus. No injection or drainage. ENT: Clear postnasal drip without bleeding, purulent drainage. Throat without erythema, tonsillar hypertrophy or exudate. Airway patent. NECK: Trachea midline. Non tender CARDIOVASCULAR: Regular rate and rhythm without murmurs, gallops, or rubs. RESPIRATORY: Clear to auscultation. Breath sounds equal bilaterally. No wheezes, rales, or rhonchi. GASTROINTESTINAL: Abdomen soft, non-tender, nondistended. EXTREMITIES: No edema or joint tenderness. BACK: Nontender without deformity or crepitance. No flank tenderness. NEURO: AOx3. SKIN: No rash or erythema of visible areas Initial Vital Signs Initial Vital Signs: Vital Signs Temperature 98.6 F 07/15/19 21:37 Pulse Rate 104 H 07/15/19 21:37 Respiratory Rate 18 07/15/19 21:37 Blood Pressure 156/97 H 07/15/19 21:37 Pulse Oximetry 97 07/15/19 21:37 Course Orders Ordered: ED Orders 07/15/19 21:38 XR chest 1V Stat Vital Signs Vital signs: Vital Signs - 8 hr 07/15/19 21:37 Temperature 98.6 F Pulse Rate 104 H Respiratory Rate 18 Blood Pressure 156/97 H Pulse Oximetry 97 Discharge Plan Departure Patient Disposition: Home Clinical Impression: Upper respiratory virus Discharge Date/Time: 07/15/19 22:03 Activity Restrictions/Additional Instructions: *You have been diagnosed with [ viral upper respiratory infection, with possible exposure to COVID 19] *What to do: * per recommendations from the CDC and the [facility] Department of Health no testing is indicated for you at this time * stay home except to get medical care. Restrict activities outside your home, except for getting medical care. Do not go to work, school, or public areas. Avoid using public transportation, ride sharing, or taxis. * separate yourself from other people in your home. * call ahead before visiting your doctor * Wear a facemask * Cover your coughs and sneezes * Clean your hands often * Avoid sharing household items * Clean all high-touch services every day * Monitor your symptoms and seek prompt medical attention if your illness is worsening, particularly with difficulty in breathing. You should monitor yourself for fever, cough and worsening shortness of breath for 14 days since the last day you were in close contact with a sick person with COVID-19. You should not go to work, school, and should avoid public places for 14 days Radiographic study has been interpreted by an emergency physician. The official diagnosis by radiology will be performed within the next 24 hours and should there be any change in outcome we will notify you of how to proceed. Prescriptions: No Action albuterol sulfate 90 mcg/actuation HFA aerosol inhaler 2 puff INHALATION QID PRN (Reason: shortness of breath or wheezing) Qty: 18 RF: 0 albuterol sulfate 90 mcg/actuation HFA aerosol inhaler 2 puff INHALATION Q4-6H PRN (Reason: shortness of breath or wheezing) Qty: 8.5 RF: 0 prednisone 20 mg tablet 60 mg PO DAILY Qty: 15 RF: 0 doxycycline hyclate 100 mg capsule 100 mg PO BID Qty: 14 RF: 0 ibuprofen 800 mg Tablet 800 mg PO Q6H PRN (Reason: Pain, Mild) RF: 0 Referrals: [facility] [Outside]
== END 2019-07-15 22:03 | disposition home or self-care (01) ==
PROVIDERS: Emergency Provider Emergency Medicine
DX: Z20.828 Contact with and (suspected) exposure to other viral communicable diseases (principal); J06.9 Acute upper respiratory infection, unspecified; R05 Cough; J02.9 Acute pharyngitis, unspecified
CPT/HCPCS: 71045; 99283

== ENCOUNTER 2019-08-22 23:24 | Emergency (ER) | payer OTHER, SELFPAY ==
--- NOTE | 2019-08-22 23:33 | DI.RAD.S_ITS ---
PROCEDURE: XR CHEST 1V INDICATIONS: SOB, hx COPD TECHNIQUE: One view of the chest was acquired. COMPARISON: [facility], CR, XR CHEST 1V, 07/15/2019, 21:51. FINDINGS: Surgical changes and devices: None. Lungs and pleura: Lungs are clear. No pleural effusions or pneumothorax. Mediastinum: Mediastinal contours appear normal. Heart size is normal. Bones and chest wall: No suspicious bony lesions. Overlying soft tissues appear unremarkable. IMPRESSION: No acute disease Dictated by: Garfield Hoffman M.D. on 08/23/2019 at 8:37 Approved by: Garfield Hoffman M.D. on 08/23/2019 at 8:39
--- NOTE | 2019-08-22 23:40 | ED_ITS ---
HPI - SOB/Dyspnea General Chief Complaint: Shortness of Breath/Dyspnea Stated Complaint: Difficulty breathing, poss exposure to covid Time Seen by Provider: 08/22/19 23:27 Source: patient Mode of arrival: Ambulatory Limitations: no limitations History of Present Illness HPI Narrative: 54-year-old male daily smoker with history of COPD presents with a chief complaint of a recurrent episode of shortness of breath and occasional cough. It has been present more often than not for the past few weeks to months. He denies any fever or chills. He denies runny nose or sore throat. He has been exposed to people that he thinks may have been exposed the COVID, but is unsure. He does have some sputum with his cough, but is unclear if it is more than normal Related Data Home Medications Medication Instructions Recorded Confirmed ibuprofen 800 mg PO Q6H PRN 12/16/18 12/16/18 Previous Rx's Medication Instructions Recorded albuterol sulfate 2 puff INHALATION QID PRN #18 gram 05/20/19 albuterol sulfate 2 puff INHALATION Q4-6H PRN #8.5 07/01/19 gram doxycycline hyclate 100 mg PO BID #14 cap 07/01/19 prednisone 60 mg PO DAILY #15 tab 07/01/19 azithromycin See Rx Instructions .ROUTE 08/23/19 .COMPLEX #6 tab Allergies Allergy/AdvReac Type Severity Reaction Status Date / Time No Known Drug Allergies Allergy Verified 05/20/19 08:33 Review of Systems Constitutional Constitutional: Denies chills, Denies fatigue, Denies fever(s), Denies frequent falls, Denies lethargy and Denies weakness Eyes Eyes: Denies change in vision, Denies eye discharge, Denies irritation and Denies loss of vision ENT Ears, Nose, Mouth, and Throat: Denies change in voice, Denies dizziness, Denies neck pain, Denies sore throat and Denies throat swelling Cardiovascular Cardiovascular: Denies chest pain, Denies irregular heart rhythm, Denies lightheadedness, Denies palpitations, Reports dyspnea, Denies dyspnea on exertion and Denies orthopnea Respiratory Respiratory: Denies cough, Reports dyspnea, Denies dyspnea on exertion and Denies wheezing Gastrointestinal Gastrointestinal: Denies abdominal pain, Denies change in bowel habits, Denies diarrhea, Denies nausea and Denies vomiting Genitourinary Genitourinary: Denies hematuria, Denies flank pain, Denies urinary incontinence and Denies urinary urgency Musculoskeletal Musculoskeletal: Denies back pain, Denies muscle weakness, Denies neck pain, Denies numbness and Denies tingling Integumentary/Breasts Skin/Breast: Denies pruritus, Denies erythema, Denies rash and Denies wounds Neurologic Neurologic: Denies behavioral changes, Denies confusion, Denies dizziness, Denies frequent falls, Denies loss of vision, Denies numbness, Denies tingling and Denies weakness Psychiatric Psychiatric: Denies anxiety, Denies behavioral changes, Denies confusion, Denies depression, Denies homicidal ideation and Denies suicidal ideation Endocrine Endocrine: Denies fatigue, Denies flushing and Denies palpitations Hematologic/Lymphatic Hematologic/Lymphatic: Denies easy bruising Allergic/Immunologic Allergic/Immunologic: Denies urticaria, Denies throat swelling and Denies wheezing Patient History Medical History Alcohol abuse (Acute) Smoker (Acute) Family History Mother Heart attack Social History Smoking Status: Current every day smoker alcohol intake: current substance use type: does not use Smoking Status: Former smoker tobacco type: cigarettes alcohol intake frequency: 3 or more drinks per day Alcohol type: hard liquor Substance Use Type: does not use Exam Narrative Exam Narrative: GENERAL: [54] year old patient appears stated age. Well- nourished, well-developed patient, in mild distress. HEAD: Atraumatic. Normocephalic. EYES: Pupils equal round and reactive. Extraocular motions intact. No scleral icterus. No injection or drainage. ENT: Nose without bleeding, purulent drainage. Throat without erythema, tonsillar hypertrophy or exudate. Airway patent. NECK: Trachea midline. Non tender CARDIOVASCULAR: Regular rate and rhythm without murmurs, gallops, or rubs. RESPIRATORY: Prolonged expiratory phase bilaterally with minimal extra Catlin wheeze. No crackles, rales or rhonchi GASTROINTESTINAL: Abdomen soft, non-tender, nondistended. EXTREMITIES: No edema or joint tenderness. BACK: Nontender without deformity or crepitance. No flank tenderness. NEURO: AOx3. SKIN: No rash or erythema of visible areas Initial Vital Signs Initial Vital Signs: Vital Signs Temperature 98.2 F 08/22/19 23:42 Pulse Rate 83 08/22/19 23:42 Respiratory Rate 16 08/22/19 23:42 Blood Pressure 146/98 H 08/22/19 23:42 Pulse Oximetry 96 08/22/19 23:42 Course Course Course Narrative: slight improvement Orders Ordered: ED Orders 08/22/19 23:33 XR chest 1V Stat Discontinued Medications Albuterol (Ventolin Hfa Prepack) 1 box MISC SEEINSTR ONE Stop: 08/22/19 23:34 Last Admin: 08/22/19 23:42 Dose: 1 box Documented by: AUDREY Vital Signs Vital signs: Vital Signs - 8 hr 08/22/19 23:42 Temperature 98.2 F Pulse Rate 83 Respiratory Rate 16 Blood Pressure 146/98 H Pulse Oximetry 96 MDM - SOB/Dyspnea Imaging Data Chest x-ray: Attestation: I personally reviewed and interpreted this imaging study as follows: My Impression: NAP Discharge Plan Departure Patient Disposition: Home Clinical Impression: Acute exacerbation of chronic obstructive airways disease, Atypical pneumonia Instructions: Chronic Obstructive Pulmonary Disease, Coronavirus Disease 2019 Activity Restrictions/Additional Instructions: *You have been diagnosed with [acute exacerbation of COPD with possible atypical pneumonia] *What to do: *Take medications as directed: Z pack sent to [facility] *Follow up with your primary care provider in 2-3 days, call for an appoin tment. Let them know you were seen in the Emergency Department and that we ask that you be seen in follow up *Return to ER if you should have any new, worsening or concerning symptoms Prescriptions: New azithromycin 250 mg tablet See Rx Instructions .ROUTE .COMPLEX Qty: 6 RF: 0 No Action albuterol sulfate 90 mcg/actuation HFA aerosol inhaler 2 puff INHALATION QID PRN (Reason: shortness of breath or wheezing) Qty: 18 RF: 0 albuterol sulfate 90 mcg/actuation HFA aerosol inhaler 2 puff INHALATION Q4-6H PRN (Reason: shortness of breath or wheezing) Qty: 8.5 RF: 0 prednisone 20 mg tablet 60 mg PO DAILY Qty: 15 RF: 0 doxycycline hyclate 100 mg capsule 100 mg PO BID Qty: 14 RF: 0 ibuprofen 800 mg Tablet 800 mg PO Q6H PRN (Reason: Pain, Mild) RF: 0 Referrals: [facility] [Outside]
[2019-08-22 23:42] VITALS: BP 146/98; PULSE 83; RESP 16; TEMP 36.8; O2SAT 96; BMI 25.9
[2019-08-22] MEDS: ALBUTEROL HFA PREPACK 1 BOX MISC (23:42)
--- NOTE | 2019-08-23 00:39 | PC.NURSE ---
PT with history of COPD. states feels short of breath. Able to speak in full sentences. lungs diminished with increased expiratory.
[2019-08-25 03:10] LABS: COVID19 Sendout Not Detected (Not Detected)
== END 2019-08-23 00:18 | disposition home or self-care (01) ==
PROVIDERS: Emergency Provider Emergency Medicine
DX: Z03.818 Encounter for observation for suspected exposure to other biological agents ruled out (principal); J44.1 Chronic obstructive pulmonary disease with (acute) exacerbation; J18.9 Pneumonia, unspecified organism
CPT/HCPCS: 71045; 87635; 94640; 99281; 99283

== ENCOUNTER 2019-10-07 14:42 | Emergency (ER) | payer SELFPAY ==
[2019-10-07 14:51] VITALS: BP 136/93; PULSE 97; RESP 24; TEMP 36.9; O2SAT 97; BMI 27.3
[2019-10-07] MEDS: ALBUTEROL/IPRATROPIUM 3 ML AMPUL INH (15:03)
[2019-10-07 15:04] VITALS: PULSE 102; RESP 16; O2SAT 97
--- NOTE | 2019-10-07 15:40 | ED_ITS ---
HPI - SOB/Dyspnea <DONELL Espino - Last Filed: 10/07/19 18:51> General Chief Complaint: Shortness of Breath/Dyspnea Stated Complaint: hx COPD, sob Time Seen by Provider: 10/07/19 14:57 Source: patient Mode of arrival: Ambulatory Limitations: no limitations History of Present Illness HPI Narrative: 54yo male with a history of an MA, HTN, and COPD, presents emergency department for any note to excuse him from work due to increased risk of elaina COVID-19. He also reports he has had a slight increase of shortness of breath over the past month since he ran out of his albuterol inhaler. Patient states he refilled his inhaler today but did not take any puffs. Patient states 10 individuals at his work at tested positive for COVID- 19, he reports he has refrained from return to work and wishes to continue to do so as he believes he has a high risk of developing complications if he contracts COVID-19. Patient states he ran out of his blood pressure medication as well which she started taking again today after refilling it. He denies any other symptoms such as cough, dizziness, chest pain, abdominal pain, nausea, vomiting, diarrhea, or any other concerns. Patient states he tried to go to the respiratory clinic but no one answered the door. Related Data Home Medications Medication Instructions Recorded Confirmed ibuprofen 800 mg PO Q6H PRN 12/16/18 12/16/18 Previous Rx's Medication Instructions Recorded albuterol sulfate 2 puff INHALATION QID PRN #18 gram 05/20/19 albuterol sulfate 2 puff INHALATION Q4-6H PRN #8.5 07/01/19 gram doxycycline hyclate 100 mg PO BID #14 cap 07/01/19 prednisone 60 mg PO DAILY #15 tab 07/01/19 azithromycin See Rx Instructions .ROUTE 08/23/19 .COMPLEX #6 tab Allergies Allergy/AdvReac Type Severity Reaction Status Date / Time No Known Drug Allergies Allergy Verified 10/07/19 14:56 Review of Systems <DONELL Espino - Last Filed: 10/07/19 18:51> Review of Systems Narrative: REVIEW OF SYSTEMS: GENERAL: Denies fevers. HENT: No head trauma. EYES: No vision changes. CARDIOVASCULAR: No chest pain. RESPIRATORY: Reports increasing shortness of breath since he has not had his medication for the past month, see HPI. GASTROINTESTINAL: No nausea, vomiting, diarrhea, or constipation. MUSCULOSKELETAL: No weakness or injury. INTEGUMENTARY: No rash, lesions, or pruritus. NEURO: No memory loss, or confusion. Patient History <DONELL Espino - Last Filed: 10/07/19 18:51> Medical History Alcohol abuse (Acute) Smoker (Acute) Family History Mother Heart attack Social History Smoking Status: Current every day smoker alcohol intake: current substance use type: does not use Smoking Status: Current every day smoker tobacco type: cigarettes alcohol intake frequency: 3 or more drinks per day Alcohol type: hard liquor Substance Use Type: does not use Exam <DONELL Espino - Last Filed: 10/07/19 18:51> Initial Vital Signs Initial Vital Signs: Vital Signs Temperature 98.5 F 10/07/19 14:51 Pulse Rate 97 H 10/07/19 14:51 Respiratory Rate 24 10/07/19 14:51 Blood Pressure 136/93 H 10/07/19 14:51 Pulse Oximetry 97 10/07/19 14:51 PHYSICAL EXAMINATION: GENERAL: Well groomed, alert, and cooperative. Answers questions promptly and appropriately. Vital signs noted. HENT: Normocephalic, atraumatic. EYES: Conjunctiva pink, sclera white, no periorbital swelling. No discharge. CHEST: Normal to inspection and without deformities. CARDIOVASCULAR: S1 and S2 sounds normal. Regular rate and rhythm, no murmurs, clicks, or bruits. RESPIRATORY: Normal respiratory rate, trachea midline, airway patent. No stridor, nasal flaring or accessory muscle use. Able to speak in full sentences. Lungs are clear in all little without wheeze, rhonchi, or crackles. No cough observed. MUSCULOSKELETAL: Normal gait and coordination. Equal tone and mass bilaterally. EXTREMITIES: Moves all extremities. SKIN: Warm, dry, soft, appropriate color for ethnicity. No lesions, rashes, or wounds to visualized areas. NEURO: Alert and Oriented X 3. Good coordination. No ataxia or cognitive issues. PSYCH: Appropriate affect and mood. <Irwin Smith MD - Last Filed: 10/08/19 07:27> Initial Vital Signs Initial Vital Signs: Vital Signs Temperature 98.5 F 10/07/19 14:51 Pulse Rate 97 H 10/07/19 14:51 Respiratory Rate 24 10/07/19 14:51 Blood Pressure 136/93 H 10/07/19 14:51 Pulse Oximetry 97 10/07/19 14:51 Course <DONELL Espino - Last Filed: 10/07/19 18:51> Course Course Narrative: 1504: Patient was given an albuterol inhaler. He reports significant improvement shortness of breath after administration inhaler. He states he is feeling better. Patient reports he would like down a note for work. 1530: Patient asking to leave as he would like to go eat pizza. Orders Ordered: Discontinued Medications Albuterol/Ipratropium (Duoneb) 3 ml INH NOW ONE Stop: 10/07/19 14:59 Last Admin: 10/07/19 15:03 Dose: 3 ml Documented by: DONTE Consultations Consultation #1: Patient staffed with Dr. Smith, discussed test, test results, and plan of care. Vital Signs Vital signs: Vital Signs - 8 hr 10/07/19 14:51 10/07/19 15:04 10/07/19 16:16 Temperature 98.5 F 97.8 F Pulse Rate 97 H 102 H 88 Respiratory Rate 24 16 18 Blood Pressure 136/93 H 125/89 Pulse Oximetry 97 97 95 <Irwin Smith MD - Last Filed: 10/08/19 07:27> Orders Ordered: Discontinued Medications Albuterol/Ipratropium (Duoneb) 3 ml INH NOW ONE Stop: 10/07/19 14:59 Last Admin: 10/07/19 15:03 Dose: 3 ml Documented by: DONTE Vital Signs Vital signs: Vital Signs - 8 hr 10/07/19 14:51 10/07/19 15:04 10/07/19 16:16 Temperature 98.5 F 97.8 F Pulse Rate 97 H 102 H 88 Respiratory Rate 24 16 18 Blood Pressure 136/93 H 125/89 Pulse Oximetry 97 97 95 MDM - SOB/Dyspnea <DONELL Espino - Last Filed: 10/07/19 18:51> Medical Records Attestation: I reviewed the patient's medical records. Lab Data Attestation: I reviewed the patient's lab results. ECG Data Interpretation: 1508: Normal sinus rhythm, rate 88, CA interval 146, QTC 430. No ST elevation or ST depression. T-wave inversion noted in V1. No ectopy. Incomplete right bundle branch block which is consistent with prior EKG. No ectopy or acute changes. EKG also viewed by Dr. Smith per protocol. MDM Narrative Medical decision making narrative: 54-year-old male with a history of COPD, presenting to the emergency department for a work note to be excused from working due to chronic health problems and risk for COVID-19. Patient reports increased shortness of breath over the past month since he has ran out of his albuterol inhaler. Patient had significant improvement after albuterol administration, states he feels better and is asking for discharge. Less concern for acute infection such as pneumonia, viral etiology, or sepsis due to lack of systemic symptoms such as productive cough, fever, tachycardia, or prolonged shortness of breath despite bronchodilators. I suspect patient's shortness of breath is due to lack of medication over the past month as his symptoms immediately improved after albuterol inhaler. Patient was given a note for the next few days knee to wrong symptoms and current pandemic. We discussed COVID-19 swabs, patient declined at this time as he was recently tested negative and did not have new or worsening symptoms. Patient was counseled extensively to established a primary care provider for further evaluation. Return precautions given for new or worsening symptoms. Patient agreed to plan of care verbalized understanding. Discharge Plan Departure Patient Disposition: Home Clinical Impression: Acute exacerbation of chronic obstructive pulmonary disease Discharge Date/Time: 10/07/19 16:12 Instructions: DI for Chronic Obstructive Pulmonary Disease, COPD: When to Call for Help Activity Restrictions/Additional Instructions: Thank you for entrusting me with your care today. As discussed, it appears your symptoms are related to a COPD exacerbation. I suggest he continue to take your inhaler as directed. Please call the clinic listed below to schedule a follow-up appointment in the next week for further evaluation and for continued discussion about further work notes. Return emergency department for any new or worsening symptoms such as chest pain, worsening shortness of breath or shortness of breath that does not resolve with her medications, dizziness, fevers, cough, or any other concerns. Prescriptions: No Action albuterol sulfate 90 mcg/actuation HFA aerosol inhaler 2 puff INHALATION QID PRN (Reason: shortness of breath or wheezing) Qty: 18 RF: 0 albuterol sulfate 90 mcg/actuation HFA aerosol inhaler 2 puff INHALATION Q4-6H PRN (Reason: shortness of breath or wheezing) Qty: 8.5 RF: 0 prednisone 20 mg tablet 60 mg PO DAILY Qty: 15 RF: 0 doxycycline hyclate 100 mg capsule 100 mg PO BID Qty: 14 RF: 0 azithromycin 250 mg tablet See Rx Instructions .ROUTE .COMPLEX Qty: 6 RF: 0 ibuprofen 800 mg Tablet 800 mg PO Q6H PRN (Reason: Pain, Mild) RF: 0 Referrals: Daniel Tejada MD [Physician] - Stand Alone Forms: Work Release Note
[2019-10-07 16:16] VITALS: BP 125/89; PULSE 88; RESP 18; TEMP 36.6; O2SAT 95
== END 2019-10-07 16:12 | disposition home or self-care (01) ==
PROVIDERS: Emergency Provider Nurse Practitioner
DX: J44.1 Chronic obstructive pulmonary disease with (acute) exacerbation (principal)
CPT/HCPCS: 93005; 94640; 99282; 99283

== ENCOUNTER 2019-10-10 17:08 | Emergency (ER) | payer SELFPAY ==
[2019-10-10 17:21] VITALS: BP 127/103; PULSE 94; RESP 18; TEMP 37; O2SAT 100
[2019-10-10] MEDS: ALBUTEROL HFA 60 PUFF/8 GM INH INH (17:40)
--- NOTE | 2019-10-10 17:44 | DI.RAD.S_ITS ---
PROCEDURE: XR CHEST 2V INDICATIONS: sob hx copd TECHNIQUE: 2 views of the chest were acquired. COMPARISON: [facility], , XR CHEST 1V, 08/22/2019, 23:37. FINDINGS: Surgical changes and devices: None. Lungs and pleura: Lungs are clear. No pleural effusions or pneumothorax. Mediastinum: Mediastinal contours are normal. Heart size is normal. Bones and chest wall: No suspicious bony abnormalities. Soft tissues appear unremarkable. IMPRESSION: No acute process. Dictated by: Dionisio Bullard M.D. on 10/11/2019 at 8:15 Approved by: Dionisio Bullard M.D. on 10/11/2019 at 8:18
--- NOTE | 2019-10-10 17:58 | ED_ITS ---
HPI - SOB/Dyspnea <JESSIKA Treviño - Last Filed: 10/10/19 21:07> General Chief Complaint: Shortness of Breath/Dyspnea Stated Complaint: trouble breathing, thinks has cancer Time Seen by Provider: 10/10/19 17:26 Source: patient Mode of arrival: Ambulatory Limitations: no limitations History of Present Illness HPI Narrative: The patient is a 54-year-old male current smoker who presents with a chief complaint of shortness of breath and wanting to be checked ?for cancer.'he states that everybody in his family has cancer and he knows he ?has it too and he feels in his bones.The patient has been tested for coronavirus twice, and come back negative both times. He states he has a history of COPD and is not always compliant with his medications. He states he drinks today with his ?pain any has had over a pt of hard alcohol today. He was here 3 days ago for a COPD exacerbation. He denies any cough. Related Data Home Medications Medication Instructions Recorded Confirmed ibuprofen 800 mg PO Q6H PRN 12/16/18 12/16/18 Previous Rx's Medication Instructions Recorded albuterol sulfate 2 puff INHALATION QID PRN #18 gram 05/20/19 albuterol sulfate 2 puff INHALATION Q4-6H PRN #8.5 07/01/19 gram doxycycline hyclate 100 mg PO BID #14 cap 07/01/19 prednisone 60 mg PO DAILY #15 tab 07/01/19 azithromycin See Rx Instructions .ROUTE 08/23/19 .COMPLEX #6 tab Allergies Allergy/AdvReac Type Severity Reaction Status Date / Time No Known Drug Allergies Allergy Verified 10/07/19 14:56 Review of Systems <FEI Treviño - Last Filed: 10/10/19 21:07> Review of Systems Narrative: GENERAL: Denies chills, fatigue, malaise, fever, sweats. HEENT: Denies sinus pain, ear pain, sore throat, difficulty swallowing, dizziness. RESPIRATORY: See HPI CARDIOVASCULAR: Denies chest pain, palpitations, orthopnea, edema, GASTROINTESTINAL: Denies nausea, vomiting, abdominal pain, diarrhea, constipation, melena. : Denies dysuria, frequency, incontinence, hematuria, urinary retention. MUSCULOSKELETAL: denies weakness, joint pain, or bony pain SKIN: Denies rash, skin lesions, or other NEUROLOGIC: Denies weakness, headache, numbness, change in speech, confusion, seizures, incoordination. PSYCHIATRIC: See HPI 12 point review of systems is negative except for those stated above Patient History <FEI Treviño - Last Filed: 10/10/19 21:07> Medical History Alcohol abuse (Acute) Smoker (Acute) Family History Mother Heart attack Social History Smoking Status: Current every day smoker alcohol intake: current substance use type: does not use Smoking Status: Current every day smoker tobacco type: cigarettes alcohol intake frequency: 3 or more drinks per day Alcohol type: hard liquor Substance Use Type: does not use Exam <FEI Treviño - Last Filed: 10/10/19 21:07> Narrative Exam Narrative: GENERAL: This is a well-nourished, well-developed patient, appears anxious HEAD: Atraumatic. Normocephalic. No temporal or scalp tenderness. EYES: Pupils equal round and reactive. Extraocular motions intact. No scleral icterus. No injection or drainage. ENT: Nose without bleeding, purulent drainage or septal hematoma. Throat without erythema, tonsillar hypertrophy or exudate. Uvula midline. Airway patent. NECK: Trachea midline. No JVD or lymphadenopathy. Supple, nontender, no meningeal signs. CARDIOVASCULAR: Regular rate and rhythm RESPIRATORY: Clear to auscultation. Breath sounds equal bilaterally. No wheezes, rales, or rhonchi. No cough. No increased respiratory effort. No accessory muscle use. GASTROINTESTINAL: Abdomen soft, non-tender, nondistended. No hepato- splenomegaly, or palpable masses. No guarding. EXTREMITIES: No clubbing, cyanosis, or edema. No joint tenderness, effusion, or edema noted. BACK: Nontender without deformity or crepitance. No flank tenderness. NEURO: AOx3. Oriented to person, place, time situation. Slight slurring of speech. SKIN: No rash or erythema on visible skin Initial Vital Signs Initial Vital Signs: Vital Signs Temperature 98.6 F 10/10/19 17:21 Pulse Rate 94 H 10/10/19 17:21 Respiratory Rate 18 06/23/20 17:21 Blood Pressure 127/103 H 10/10/19 17:21 Pulse Oximetry 100 10/10/19 17:21 <Сергей Miner DO - Last Filed: 10/10/19 22:20> Initial Vital Signs Initial Vital Signs: Vital Signs Temperature 98.6 F 10/10/19 17:21 Pulse Rate 94 H 10/10/19 17:21 Respiratory Rate 18 10/10/19 17:21 Blood Pressure 127/103 H 10/10/19 17:21 Pulse Oximetry 100 10/10/19 17:21 Scores <FEI Treviño - Last Filed: 10/10/19 21:07> GCS Kerrie coma scale eye opening: Spontaneous [place] coma scale verbal response: Orientated Kerrie coma scale motor response: Obey commands [place] coma scale total score: 15 Course <FEI Treviño - Last Filed: 10/10/19 21:07> Orders Ordered: ED Orders 10/10/19 17:43 Consult to Respiratory Therapy Evaluate & Treat EKG-12 Lead Stat 10/10/19 17:44 XR chest 2V Stat 10/10/19 17:46 Consult to [facility] - [employer] Stat 10/10/19 17:51 Complete Blood Count AUTO DIFF Stat Comprehensive Metabolic Panel Stat D Dimer Stat Ethanol (ETOH) Stat Magnesium Stat NT-proBNP (BNP-Adult 18+) Stat Procalcitonin Stat Troponin & CK Cardiac Panel Stat Discontinued Medications Albuterol (Ventolin Hfa) 2 puff INH NOW ONE Stop: 10/10/19 17:36 Last Admin: 10/10/19 17:40 Dose: 2 puff Documented by: MERISSA Vital Signs Vital signs: Vital Signs - 8 hr 10/10/19 17:21 10/10/19 18:09 Temperature 98.6 F Pulse Rate 94 H Respiratory Rate 18 Blood Pressure 127/103 H Pulse Oximetry 100 100 <Сергей Miner DO - Last Filed: 10/10/19 22:20> Orders Ordered: ED Orders 10/10/19 17:43 Consult to Respiratory Therapy Evaluate & Treat EKG-12 Lead Stat 10/10/19 17:44 XR chest 2V Stat 10/10/19 17:46 Consult to [facility] - Art[employer]eor[employer] Man Stat 10/10/19 17:51 Complete Blood Count AUTO DIFF Stat Comprehensive Metabolic Panel Stat D Dimer Stat Ethanol (ETOH) Stat Magnesium Stat NT-proBNP (BNP-Adult 18+) Stat Procalcitonin Stat Troponin & CK Cardiac Panel Stat Discontinued Medications Albuterol (Ventolin Hfa) 2 puff INH NOW ONE Stop: 10/10/19 17:36 Last Admin: 10/10/19 17:40 Dose: 2 puff Documented by: MERISSA Vital Signs Vital signs: Vital Signs - 8 hr 10/10/19 17:21 10/10/19 18:09 Temperature 98.6 F Pulse Rate 94 H Respiratory Rate 18 Blood Pressure 127/103 H Pulse Oximetry 100 100 MDM - SOB/Dyspnea <JESSIKA TreviñoBC - Last Filed: 10/10/19 21:07> Lab Data Result diagrams: 10/10/19 17:51 10/10/19 17:51 Labs: Lab Results 10/10/19 10/10/19 10/10/19 Range/Units 17:51 17:51 17:51 WBC 9.1 (4.5-11.0) X10^3/uL RBC 4.12 L (4.5-5.9) X10^6/uL Hgb 15.0 (13.5-17.5) g/dL Hct 42.4 (41-53) % MCV 102.9 H (80-100) fL MCH 36.3 H (26-34) PG MCHC 35.3 (30-36) % RDW 14.5 (11.6-14.8) % Plt Count 238 (150-400) X10^3/uL Neut % (Auto) 49.4 L (50-75) % Lymph % (Auto) 34.0 (25-40) % Edmunds % (Auto) 9.7 (3-14) % Eos % (Auto) 6.5 H (2-4) % Baso % (Auto) 0.4 (0-2) % Neut # (Auto) 4500 (5787-2706) /uL Lymph # (Auto) 3100 (4684-5970) /uL Edmunds # (Auto) 900 (0-900) /uL Eos # (Auto) 600 H (0-450) /uL Baso # (Auto) 0 (0-100) /uL D-Dimer 228 (<230) ng/mL Sodium (137-145) mmol/L Potassium (3.4-5.1) mmol/L Chloride (98-107) mmol/L Carbon Dioxide (22-32) mmol/L BUN (9-20) mg/dL Creatinine (0.66-1.25) mg/dL Estimated GFR (>60) mL/min BUN/Creatinine Ratio (6-22) Glucose (70-100) mg/dL Calcium (8.4-10.2) mg/dL Magnesium 2.3 (1.6-2.3) mg/dL Total Bilirubin (0.2-1.3) mg/dL AST (17-59) IU/L ALT (<50) IU/L Alkaline Phosphatase (38-126) U/L Total Creatine Kinase 172 H (55-170) U/L CK-MB (CK-2) 1.46 (<2.37) ng/mL CK-MB (CK-2) Rel Index 0.8 L (1.5-5.0) % Troponin I < 0.012 (0.01-0.034) ng/mL NT-Pro-B Natriuret Pep 58 (<125) pg/mL Total Protein (6.3-8.2) g/dL Albumin (3.5-5.0) g/dL Globulin (1.7-4.1) g/dL Albumin/Globulin Ratio (1.0-2.8) Procalcitonin (<0.5) ng/mL Ethyl Alcohol 273 H ( - 10) mg/dL 10/10/19 10/10/19 Range/Units 17:51 17:51 WBC (4.5-11.0) X10^3/uL RBC (4.5-5.9) X10^6/uL Hgb (13.5-17.5) g/dL Hct (41-53) % MCV (80-100) fL MCH (26-34) PG MCHC (30-36) % RDW (11.6-14.8) % Plt Count (150-400) X10^3/uL Neut % (Auto) (50-75) % Lymph % (Auto) (25-40) % Edmunds % (Auto) (3-14) % Eos % (Auto) (2-4) % Baso % (Auto) (0-2) % Neut # (Auto) (7107-0142) /uL Lymph # (Auto) (4207-1451) /uL Edmunds # (Auto) (0-900) /uL Eos # (Auto) (0-450) /uL Baso # (Auto) (0-100) /uL D-Dimer (<230) ng/mL Sodium 143 (137-145) mmol/L Potassium 3.9 (3.4-5.1) mmol/L Chloride 109 H (98-107) mmol/L Carbon Dioxide 25 (22-32) mmol/L BUN 12 (9-20) mg/dL Creatinine 0.68 (0.66-1.25) mg/dL Estimated GFR > 60.0 (>60) mL/min BUN/Creatinine Ratio 17.6 (6-22) Glucose 111 H (70-100) mg/dL Calcium 8.9 (8.4-10.2) mg/dL Magnesium (1.6-2.3) mg/dL Total Bilirubin 0.4 (0.2-1.3) mg/dL AST 66 H (17-59) IU/L ALT 34 (<50) IU/L Alkaline Phosphatase 68 (38-126) U/L Total Creatine Kinase (55-170) U/L CK-MB (CK-2) (<2.37) ng/mL CK-MB (CK-2) Rel Index (1.5-5.0) % Troponin I (0.01-0.034) ng/mL NT-Pro-B Natriuret Pep (<125) pg/mL Total Protein 7.0 (6.3-8.2) g/dL Albumin 4.0 (3.5-5.0) g/dL Globulin 3.0 (1.7-4.1) g/dL Albumin/Globulin Ratio 1.3 (1.0-2.8) Procalcitonin < 0.05 (<0.5) ng/mL Ethyl Alcohol ( - 10) mg/dL Imaging Data Chest x-ray: My Impression: A preliminary Radiology interpretation: Heart size and pulmonary vascularity are normal. No acute pathology. MDM Narrative Medical decision making narrative: The patient is a 54-year-old male who presents with a chief complaint of continued shortness of breath since his visit a few days ago. However he is mostly focused on finding out ?if I have cancer.His baseline labs are normal, chest x-ray is no acute findings, he has had 2-coronavirus test in the [facility] recently. Given the patient coming to the emergency department to figure out ?if he has cancer while intoxicated with an ETOH of 273, I placed [facility] [employer] [facility] referral. However the patient requested to leave the emergency department and be discharged home because ?it was taking too long and I want to smoke.I encouraged follow-up with primary care provider, gave him contact information [facility] health resource room teacher. Patient was clinically sober when he left, nursing as sured he did not drive home. Patient has no questions or concerns upon discharge and states understanding of return precautions as well as follow-up care. <Сергей Miner, DO - Last Filed: 10/10/19 22:20> Lab Data Labs: Lab Results 10/10/19 10/10/19 10/10/19 Range/Units 17:51 17:51 17:51 WBC 9.1 (4.5-11.0) X10^3/uL RBC 4.12 L (4.5-5.9) X10^6/uL Hgb 15.0 (13.5-17.5) g/dL Hct 42.4 (41-53) % MCV 102.9 H (80-100) fL MCH 36.3 H (26-34) PG MCHC 35.3 (30-36) % RDW 14.5 (11.6-14.8) % Plt Count 238 (150-400) X10^3/uL Neut % (Auto) 49.4 L (50-75) % Lymph % (Auto) 34.0 (25-40) % Edmunds % (Auto) 9.7 (3-14) % Eos % (Auto) 6.5 H (2-4) % Baso % (Auto) 0.4 (0-2) % Neut # (Auto) 4500 (8413-6699) /uL Lymph # (Auto) 3100 (1642-8862) /uL Edmunds # (Auto) 900 (0-900) /uL Eos # (Auto) 600 H (0-450) /uL Baso # (Auto) 0 (0-100) /uL D-Dimer 228 (<230) ng/mL Sodium (137-145) mmol/L Potassium (3.4-5.1) mmol/L Chloride (98-107) mmol/L Carbon Dioxide (22-32) mmol/L BUN (9-20) mg/dL Creatinine (0.66-1.25) mg/dL Estimated GFR (>60) mL/min BUN/Creatinine Ratio (6-22) Glucose (70-100) mg/dL Calcium (8.4-10.2) mg/dL Magnesium 2.3 (1.6-2.3) mg/dL Total Bilirubin (0.2-1.3) mg/dL AST (17-59) IU/L ALT (<50) IU/L Alkaline Phosphatase (38-126) U/L Total Creatine Kinase 172 H (55-170) U/L CK-MB (CK-2) 1.46 (<2.37) ng/mL CK-MB (CK-2) Rel Index 0.8 L (1.5-5.0) % Troponin I < 0.012 (0.01-0.034) ng/mL NT-Pro-B Natriuret Pep 58 (<125) pg/mL Total Protein (6.3-8.2) g/dL Albumin (3.5-5.0) g/dL Globulin (1.7-4.1) g/dL Albumin/Globulin Ratio (1.0-2.8) Procalcitonin (<0.5) ng/mL Ethyl Alcohol 273 H ( - 10) mg/dL 10/10/19 10/10/19 Range/Units 17:51 17:51 WBC (4.5-11.0) X10^3/uL RBC (4.5-5.9) X10^6/uL Hgb (13.5-17.5) g/dL Hct (41-53) % MCV (80-100) fL MCH (26-34) PG MCHC (30-36) % RDW (11.6-14.8) % Plt Count (150-400) X10^3/uL Neut % (Auto) (50-75) % Lymph % (Auto) (25-40) % Edmunds % (Auto) (3-14) % Eos % (Auto) (2-4) % Baso % (Auto) (0-2) % Neut # (Auto) (4912-8128) /uL Lymph # (Auto) (2515-3177) /uL Edmunds # (Auto) (0-900) /uL Eos # (Auto) (0-450) /uL Baso # (Auto) (0-100) /uL D-Dimer (<230) ng/mL Sodium 143 (137-145) mmol/L Potassium 3.9 (3.4-5.1) mmol/L Chloride 109 H (98-107) mmol/L Carbon Dioxide 25 (22-32) mmol/L BUN 12 (9-20) mg/dL Creatinine 0.68 (0.66-1.25) mg/dL Estimated GFR > 60.0 (>60) mL/min BUN/Creatinine Ratio 17.6 (6-22) Glucose 111 H (70-100) mg/dL Calcium 8.9 (8.4-10.2) mg/dL Magnesium (1.6-2.3) mg/dL Total Bilirubin 0.4 (0.2-1.3) mg/dL AST 66 H (17-59) IU/L ALT 34 (<50) IU/L Alkaline Phosphatase 68 (38-126) U/L Total Creatine Kinase (55-170) U/L CK-MB (CK-2) (<2.37) ng/mL CK-MB (CK-2) Rel Index (1.5-5.0) % Troponin I (0.01-0.034) ng/mL NT-Pro-B Natriuret Pep (<125) pg/mL Total Protein 7.0 (6.3-8.2) g/dL Albumin 4.0 (3.5-5.0) g/dL Globulin 3.0 (1.7-4.1) g/dL Albumin/Globulin Ratio 1.3 (1.0-2.8) Procalcitonin < 0.05 (<0.5) ng/mL Ethyl Alcohol ( - 10) mg/dL Discharge Plan Departure Patient Disposition: Home Clinical Impression: Alcohol intoxication Qualifiers: Complication of substance-induced condition: uncomplicated Qualified Code(s): F10.920 - Alcohol use, unspecified with intoxication, uncomplicated Discharge Date/Time: 10/10/19 19:05 Instructions: DI for Alcohol Abuse Activity Restrictions/Additional Instructions: Thank you for trusting us with your care today As discussed, your lab work is stable compared to previous draws. I do not have your chest x-ray read back yet but will call you with anything acute comes up with Radiology gabby Please follow-up with primary care provider. I have given contact information [facility] resource room teacher. They can help much with primary care provider. Please do not drink as much alcohol. Prescriptions: No Action albuterol sulfate 90 mcg/actuation HFA aerosol inhaler 2 puff INHALATION QID PRN (Reason: shortness of breath or wheezing) Qty: 18 RF: 0 albuterol sulfate 90 mcg/actuation HFA aerosol inhaler 2 puff INHALATION Q4-6H PRN (Reason: shortness of breath or wheezing) Qty: 8.5 RF: 0 prednisone 20 mg tablet 60 mg PO DAILY Qty: 15 RF: 0 doxycycline hyclate 100 mg capsule 100 mg PO BID Qty: 14 RF: 0 azithromycin 250 mg tablet See Rx Instructions .ROUTE .COMPLEX Qty: 6 RF: 0 ibuprofen 800 mg Tablet 800 mg PO Q6H PRN (Reason: Pain, Mild) RF: 0 Referrals: [facility] [Outside] <Сергей Miner, DO - Last Filed: 10/10/19 22:20> Cosign ED Attending Cosignature Attestation: Dr Miner Co-Sign Statement: I was available for consultation during this patient's emergency department visit. This chart is signed by myself for administrative purposes only. I did not have direct contact with this patient during this visit. They were seen independently by the APC.
[2019-10-10 18:02] LABS: Add Manual Diff / Slide Review NO; Basophils Absolute Auto 0 /uL (0-100); Basophils Percent Auto 0.4 % (0-2); Eosinophils Absolute Auto 600 /uL (0-450); Eosinophils Percent Auto 6.5 % (2-4); Hematocrit 42.4 % (41-53); Lymphocytes Absolute Auto 3100 /uL (1100-4500); Mean Corpuscular HGB Conc 35.3 % (30-36); Mean Corpuscular Hemoglobin 36.3 PG (26-34); Mean Corpuscular Volume 102.9 fL (80-100); Monocytes Absolute Auto 900 /uL (0-900); Monocytes Percent Auto 9.7 % (3-14); Neutrophils Absolute Auto 4500 /uL (1500-7000); Neutrophils Percent Auto 49.4 % (50-75); Platelet Count 238 X10^3/uL (150-400); Red Blood Cell Count 4.12 X10^6/uL (4.5-5.9); Red Cell Distribution Width 14.5 % (11.6-14.8); White Blood Cell Count 9.1 X10^3/uL (4.5-11.0)
[2019-10-10 18:09] VITALS: O2SAT 100
[2019-10-10 18:17] LABS: Creatine Kinase 172 U/L (55-170); Magnesium 2.3 mg/dL (1.6-2.3)
[2019-10-10 18:18] LABS: Alanine Aminotransferase 34 IU/L (<50); Albumin Globulin Ratio 1.3 (1.0-2.8); Alkaline Phosphatase 68 U/L (38-126); Aspartate Aminotransferase 66 IU/L (17-59); BUN Creatinine Ratio 17.6 (6-22); Bilirubin Total 0.4 mg/dL (0.2-1.3); Blood Urea Nitrogen 12 mg/dL (9-20); Calcium 8.9 mg/dL (8.4-10.2); Carbon Dioxide 25 mmol/L (22-32); Chloride 109 mmol/L (98-107); Estimated Glomerular Filt Rate > 60.0 mL/min (>60); Glucose 111 mg/dL (70-100); HEMOLYSIS 23 (0-50); Potassium 3.9 mmol/L (3.4-5.1); Sodium 143 mmol/L (137-145)
--- NOTE | 2019-10-10 18:18 | PC.NURSE ---
patient states that he takes 8 ibuprofen per day/ and drinks multiple drinks every day. Discussed reducing his intake of ibuprofen and alcohol.
[2019-10-10 18:21] LABS: D Dimer 228 ng/mL (<230)
[2019-10-10 18:25] LABS: Ethanol (ETOH) 273 mg/dL
--- NOTE | 2019-10-10 18:27 | PC.NURSE ---
Patient in room asking to be able to go outside and smoke a cigarette
[2019-10-10 18:30] LABS: NT-proBNP (BNP-Adult 18+) 58 pg/mL (<125); Troponin I < 0.012 ng/mL (0.01-0.034)
[2019-10-10 18:32] LABS: CKMB % Relative Index 0.8 % (1.5-5.0); Creatine Kinase MB 1.46 ng/mL (<2.37)
[2019-10-10 18:39] LABS: Procalcitonin < 0.05 ng/mL (<0.5)
--- NOTE | 2019-10-10 18:48 | PC.NURSE ---
patient is clinically sober. he is requesting to leave and has been informed that he cannot drive or operate a motor vehicle.
--- NOTE | 2019-10-10 19:03 | PC.NURSE ---
Pt refused vital signs and left without discharge instructions stating he wanted to smoke. He then came back and wanted his paperwork which I gave to him. He verbalized understanding of instructions and is taking cab home, not driving. Steady gait, a/o x 4. Did not want to wait for social work consult.
== END 2019-10-10 19:05 | disposition home or self-care (01) ==
PROVIDERS: Emergency Provider Nurse Practitioner Family
DX: F10.129 Alcohol abuse with intoxication, unspecified (principal); Y90.8 Blood alcohol level of 240 mg/100 ml or more; R06.02 Shortness of breath; J44.9 Chronic obstructive pulmonary disease, unspecified
CPT/HCPCS: 36415; 71046; 80053; 80320; 82550; 82553; 83735; 83880; 84145; 84484; 85025; 85379; 93005; 94640; 99283; 99284

== ENCOUNTER 2022-12-08 23:25 | Emergency (ER) | payer SELFPAY ==
--- NOTE | 2022-12-08 23:37 | DI.RAD.S_ITS ---
PROCEDURE: XR CHEST 1V INDICATIONS: chest pain TECHNIQUE: One view of the chest was acquired. COMPARISON: [facility], CR, XR CHEST 1 VIEW, 09/12/2021, 8:56. [facility], CR, XR CHEST 1V, 08/22/2019, 23:37. [facility], CR, XR CHEST 1V, 07/15/2019, 21:51. FINDINGS: Surgical changes and devices: None. Lungs and pleura: Lungs are clear. No pleural effusions or pneumothorax. Mediastinum: Mediastinal contours appear normal. Heart size is normal. Bones and chest wall: No suspicious bony lesions. Overlying soft tissues appear unremarkable. IMPRESSION: No acute cardiopulmonary abnormality. Approved by: Blayne Huynh M.D. on 12/09/2022 at 0:05
[2022-12-08 23:38] VITALS: BP 141/88; PULSE 108; RESP 19; TEMP 36.6; O2SAT 97; BMI 29.4
[2022-12-08 23:44] VITALS: PULSE 98; RESP 21; O2SAT 96
[2022-12-08 23:46] VITALS: BP 120/76; PULSE 97; RESP 19; O2SAT 94
--- NOTE | 2022-12-08 23:47 | ED.CHESTPAIN ---
HPI - Chest Pain General Chief Complaint: Chest Pain Stated Complaint: chest pain, copd, and has been drinking a lot Time Seen by Provider: 12/08/22 23:29 Source: patient Mode of arrival: Ambulatory Limitations: no limitations History of Present Illness HPI narrative: Patient is a 57-year-old male. Has a history of COPD. Uses albuterol and Advair and also has a nebulizer at home that he uses as needed. He is here for evaluation of chest discomfort. He states that the chest discomfort has been present for the past 12 hours. He is also having shortness of breath with some cough but without fevers. It is a nonproductive cough. He is not been using his nebulizer at home. He also states that he has been drinking quite a bit for the past week or so. He recently found out about a of a family member which is caused him to drink. Related Data Home Medications Medication Instructions Recorded Confirmed ibuprofen 800 mg tablet 800 mg PO Q6H PRN Pain, Mild 12/16/18 12/16/18 Previous Rx's Medication Instructions Recorded albuterol sulfate 90 mcg/actuation 2 puff inhalation QID PRN 05/20/19 aerosol inhaler shortness of breath or wheezing #18 grams albuterol sulfate 90 mcg/actuation 2 puff inhalation Q4-6H PRN 07/01/19 aerosol inhaler shortness of breath or wheezing #8.5 grams doxycycline hyclate 100 mg capsule 100 mg PO BID #14 caps 07/01/19 prednisone 20 mg tablet 60 mg PO DAILY #15 tabs 07/01/19 azithromycin 250 mg tablet See Rx Instructions PO .COMPLEX #6 08/23/19 tabs Allergies Allergy/AdvReac Type Severity Reaction Status Date / Time No Known Drug Allergies Allergy Verified 10/07/19 14:56 Review of Systems Constitutional Constitutional: Reports system reviewed and no additional complaints, except as documented Cardiovascular Cardiovascular: Reports system reviewed and no additional complaints, except as documented Respiratory Respiratory: Reports system reviewed and no additional complaints, except as documented Gastrointestinal Gastrointestinal: Reports system reviewed and no additional complaints, except as documented Genitourinary Genitourinary: Reports system reviewed and no additional complaints, except as documented Integumentary/Breasts Skin/Breast: Reports system reviewed and no additional complaints, except as documented Hematologic/Lymphatic On Anticoagulants: No Patient History Medical History Alcohol abuse Smoker Family History Mother Heart attack Social History Smoking Status: Current every day smoker alcohol intake: current substance use type: does not use Smoking Status: Current every day smoker tobacco type: cigarettes alcohol intake frequency: 3 or more drinks per day Alcohol type: hard liquor Substance Use Type: does not use Exam Initial Vital Signs Initial Vital Signs: Vital Signs Temperature 97.8 F 12/08/22 23:38 Pulse Rate 108 H 12/08/22 23:38 Respiratory Rate 19 12/08/22 23:38 Blood Pressure 141/88 H 12/08/22 23:38 Pulse Oximetry 97 12/08/22 23:38 Oxygen Delivery Method Room Air 12/08/22 23:38 Const General: cooperative and No ill appearing HENMT Head: normal to inspection and normocephalic Resp Effort & Inspection: normal respiratory effort Auscultation: clear to auscultation bilaterally Cardio Rate: regular rate Rhythm: regular rhythm GI Inspection: normal to inspection and non-distended Skin General: no rashes or lesions noted Neuro General: patient alert, patient awake, patient oriented x3 and moves all extremities Extrem General: No edema Scores HEART Score Heart Score history: Slightly Suspicious Heart Score EKG: Non-Specific repolarization disturbance Heart Score Age: 45-64 years old Heart Score risk factors: 1-2 risk factors Heart Score troponin: < or = to normal limit Heart Score Total: 3 Course Orders Ordered: ED Orders 12/08/22 23:37 XR chest 1V Stat EKG-12 Lead Stat 12/08/22 23:45 Complete Blood Count AUTO DIFF Stat Comprehensive Metabolic Panel Stat Ethanol (ETOH) Stat Lipase Stat Magnesium Stat NT-proBNP (BNP-Adult 18+) Stat Troponin & CK Cardiac Panel Stat 12/09/22 02:47 Troponin & CK Cardiac Panel Stat Discontinued Medications Albuterol/Ipratropium (Albuterol/Ipratropium 3 Ml Ampul) 3 ml INH NOW ONE Stop: 12/09/22 00:10 Last Admin: 12/09/22 00:16 Dose: 3 ml Documented By: Nicotine (Nicotine 21 Mg Patch) 21 mg TOP NOW ONE Stop: 12/09/22 02:48 Last Admin: 12/09/22 03:00 Dose: 21 mg Documented By: Vital Signs Vital signs: Vital Signs - 8 hr 12/08/22 23:38 12/08/22 23:44 12/08/22 23:46 Temperature 97.8 F Pulse Rate 108 H 98 H Respiratory Rate 19 21 Blood Pressure 141/88 H 120/76 Pulse Oximetry 97 96 Oxygen Delivery Method Room Air 12/08/22 23:46 12/09/22 00:00 12/09/22 00:00 Temperature Pulse Rate 97 H 91 H Respiratory Rate 19 12 Blood Pressure 122/73 Pulse Oximetry 94 93 Oxygen Delivery Method 12/09/22 00:29 12/09/22 00:30 12/09/22 00:30 Temperature Pulse Rate 98 H 97 H Respiratory Rate Blood Pressure 122/74 Pulse Oximetry 91 Oxygen Delivery Method 12/09/22 01:00 12/09/22 01:30 12/09/22 01:49 Temperature Pulse Rate 96 H 95 H Respiratory Rate 24 20 Blood Pressure 130/78 Pulse Oximetry 90 L Oxygen Delivery Method 12/09/22 01:49 12/09/22 02:00 12/09/22 02:00 Temperature Pulse Rate 97 H 95 H Respiratory Rate 22 22 Blood Pressure 131/78 Pulse Oximetry 92 92 Oxygen Delivery Method 12/09/22 02:30 12/09/22 02:30 12/09/22 03:00 Temperature Pulse Rate 110 H Respiratory Rate 32 H Blood Pressure 138/79 123/74 Pulse Oximetry 94 Oxygen Delivery Method 12/09/22 03:00 12/09/22 03:30 12/09/22 03:30 Temperature Pulse Rate 97 H 97 H Respiratory Rate 24 Blood Pressure 115/79 Pulse Oximetry 94 96 Oxygen Delivery Method MDM - Chest Pain Lab Data Attestation: I reviewed the patient's lab results. 12/08/22 23:45 12/08/22 23:45 Labs: Lab Results 12/08/22 12/08/22 12/08/22 Range/Units 23:45 23:45 23:45 WBC 9.5 (4.5-11.0) X10^3/uL RBC 4.31 L (4.5-5.9) X10^6/uL Hgb 15.7 (13.5-17.5) g/dL Hct 45.7 (41-53) % MCV 105.9 H (80-100) fL MCH 36.4 H (26-34) PG MCHC 34.4 (30-36) % RDW 13.6 (11.6-14.8) % Plt Count 211 (150-400) X10^3/uL Neut % (Auto) 50.3 (50-75) % Lymph % (Auto) 30.9 (25-40) % Weber % (Auto) 10.2 (3-14) % Eos % (Auto) 7.4 H (2-4) % Baso % (Auto) 1.2 (0-2) % Neut # (Auto) 4800 (6501-9396) /uL Lymph # (Auto) 2900 (8339-8372) /uL Weber # (Auto) 1000 H (0-900) /uL Eos # (Auto) 700 H (0-450) /uL Baso # (Auto) 100 (0-100) /uL Sodium 140 (137-145) mmol/L Potassium 3.6 (3.4-5.1) mmol/L Chloride 104 (98-107) mmol/L Carbon Dioxide 24 (22-32) mmol/L BUN 10 (9-20) mg/dL Creatinine 0.69 (0.66-1.25) mg/dL Estimated GFR > 60 (>60) mL/min BUN/Creatinine Ratio 14.5 (6-22) Glucose 116 H (70-100) mg/dL Calcium 8.9 (8.4-10.2) mg/dL Magnesium 2.3 (1.6-2.3) mg/dL Total Bilirubin 0.4 (0.2-1.3) mg/dL AST 42 (17-59) IU/L ALT 25 (<50) IU/L Alkaline Phosphatase 62 (38-126) U/L Total Creatine Kinase 150 (55-170) U/L Troponin I 0.014 (0.01-0.034) ng/mL NT-Pro-B Natriuret Pep 113 (<125) pg/mL Total Protein 7.5 (6.3-8.2) g/dL Albumin 4.0 (3.5-5.0) g/dL Globulin 3.5 (1.7-4.1) g/dL Albumin/Globulin Ratio 1.1 (1.0-2.8) Lipase 251 (23-300) U/L Ethyl Alcohol 239 H ( - 10) mg/dL 12/09/22 Range/Units 02:47 WBC (4.5-11.0) X10^3/uL RBC (4.5-5.9) X10^6/uL Hgb (13.5-17.5) g/dL Hct (41-53) % MCV (80-100) fL MCH (26-34) PG MCHC (30-36) % RDW (11.6-14.8) % Plt Count (150-400) X10^3/uL Neut % (Auto) (50-75) % Lymph % (Auto) (25-40) % Weber % (Auto) (3-14) % Eos % (Auto) (2-4) % Baso % (Auto) (0-2) % Neut # (Auto) (9468-5005) /uL Lymph # (Auto) (8640-6447) /uL Weber # (Auto) (0-900) /uL Eos # (Auto) (0-450) /uL Baso # (Auto) (0-100) /uL Sodium (137-145) mmol/L Potassium (3.4-5.1) mmol/L Chloride (98-107) mmol/L Carbon Dioxide (22-32) mmol/L BUN (9-20) mg/dL Creatinine (0.66-1.25) mg/dL Estimated GFR (>60) mL/min BUN/Creatinine Ratio (6-22) Glucose (70-100) mg/dL Calcium (8.4-10.2) mg/dL Magnesium (1.6-2.3) mg/dL Total Bilirubin (0.2-1.3) mg/dL AST (17-59) IU/L ALT (<50) IU/L Alkaline Phosphatase (38-126) U/L Total Creatine Kinase 130 (55-170) U/L Troponin I 0.014 (0.01-0.034) ng/mL NT-Pro-B Natriuret Pep (<125) pg/mL Total Protein (6.3-8.2) g/dL Albumin (3.5-5.0) g/dL Globulin (1.7-4.1) g/dL Albumin/Globulin Ratio (1.0-2.8) Lipase (23-300) U/L Ethyl Alcohol ( - 10) mg/dL Imaging Data Chest x-ray: Radiologist's Impression: ROCEDURE:? XR CHEST 1V ? INDICATIONS:? chest pain ? TECHNIQUE:? One view of the chest was acquired.? ? COMPARISON:? [facility], CR, XR CHEST 1 VIEW, 09/12/2021, 8:56.? [facility], CR, XR CHEST 1V, 08/22/2019, 23:37.? [facility], CR, XR CHEST 1V, 07/15/2019, 21:51. ? FINDINGS:? ? Surgical changes and devices:? None.? ? Lungs and pleura:? Lungs are clear.? No pleural effusions or pneumothorax.? ? Mediastinum:? Mediastinal contours appear normal.? Heart size is normal.? ? Bones and chest wall:? No suspicious bony lesions.? Overlying soft tissues appear unremarkable.? ? IMPRESSION:? No acute cardiopulmonary abnormality. ECG Data Attestation: I personally reviewed and interpreted this ECG as follows: Interpretation: Sinus tachycardia Ventricular rate 107 Normal axis Normal QRS Normal QTC Nonspecific ST T wave changes MDM Narrative Medical decision making narrative: Upon arrival he did clear lungs and was not hypoxic. Not tachypneic. His chest x-ray shows no signs of pneumonia. He has been having chest discomfort for approximately 12 hours. He is nonspecific changes on his EKG. Low risk heart score. Troponins are negative x2. Patient is intoxicated. He did receive 1 DuoNeb during his stay. Upon re-evaluation after his 2nd troponin he states he feels much better. He is no longer short of breath. Has no chest discomfort. No indication for antibiotics. No indication for admission to the hospital although he does need follow-up with his primary doctor. He was given return precautions. He expressed understanding and agreement. Discharge Plan Departure Patient Disposition: Home Clinical Impression: Atypical chest pain, COPD (chronic obstructive pulmonary disease), Alcohol intoxication Instructions: DI for Chronic Obstructive Pulmonary Disease, DI for Atypical Chest Pain Activity Restrictions/Additional Instructions: I am truly sorry to hear about the circumstances with regard to your son. No driving if you are drinking. You do need to protect yourself and others on the road. I recommend that you contact your primary doctor for a follow-up. Return to the emergency department for new or worsening symptoms. Continue to take all of your medications as directed. Prescriptions: No Action albuterol sulfate 90 mcg/actuation HFA aerosol inhaler 2 puff INHALATION QID PRN (Reason: shortness of breath or wheezing) Qty: 18 0RF albuterol sulfate 90 mcg/actuation HFA aerosol inhaler 2 puff INHALATION Q4-6H PRN (Reason: shortness of breath or wheezing) Qty: 8.5 0RF Rx Instructions: 1-2 puffs every 2-4 hours as needed for cough, wheezing and shortness of breath prednisone 20 mg tablet 60 mg PO DAILY Qty: 15 0RF doxycycline hyclate 100 mg capsule 100 mg PO BID Qty: 14 0RF azithromycin 250 mg tablet See Rx Instructions .ROUTE .COMPLEX Qty: 6 0RF Rx Instructions: take 500 mg today (day 1), then 250 mg for 4 days (days 2-5) ibuprofen 800 mg Tablet 800 mg PO Q6H PRN (Reason: Pain, Mild) Stand Alone Forms: Patient Portal/API
[2022-12-08 23:56] LABS: Add Manual Diff / Slide Review NO; Basophils Absolute Auto 100 /uL (0-100); Basophils Percent Auto 1.2 % (0-2); Eosinophils Absolute Auto 700 /uL (0-450); Eosinophils Percent Auto 7.4 % (2-4); Hematocrit 45.7 % (41-53); Hemoglobin 15.7 g/dL (13.5-17.5); Lymphocytes Absolute Auto 2900 /uL (1100-4500); Lymphocytes Percent Auto 30.9 % (25-40); Mean Corpuscular HGB Conc 34.4 % (30-36); Mean Corpuscular Hemoglobin 36.4 PG (26-34); Mean Corpuscular Volume 105.9 fL (80-100); Monocytes Absolute Auto 1000 /uL (0-900); Monocytes Percent Auto 10.2 % (3-14); Neutrophils Absolute Auto 4800 /uL (1500-7000); Neutrophils Percent Auto 50.3 % (50-75); Platelet Count 211 X10^3/uL (150-400); Red Blood Cell Count 4.31 X10^6/uL (4.5-5.9); Red Cell Distribution Width 13.6 % (11.6-14.8); White Blood Cell Count 9.5 X10^3/uL (4.5-11.0)
[2022-12-09] VITALS (11 sets, daily range): BP systolic 115–144; BP diastolic 73–91; PULSE 91–110; RESP 12–32; O2SAT 90–96
[2022-12-09 00:04] LABS: Alanine Aminotransferase 25 IU/L (<50); Albumin Globulin Ratio 1.1 (1.0-2.8); Alkaline Phosphatase 62 U/L (38-126); Aspartate Aminotransferase 42 IU/L (17-59); BUN Creatinine Ratio 14.5 (6-22); Bilirubin Total 0.4 mg/dL (0.2-1.3); Blood Urea Nitrogen 10 mg/dL (9-20); Calcium 8.9 mg/dL (8.4-10.2); Carbon Dioxide 24 mmol/L (22-32); Chloride 104 mmol/L (98-107); Creatine Kinase 150 U/L (55-170); Estimated Glomerular Filt Rate > 60 mL/min (>60); Globulin 3.5 g/dL (1.7-4.1); Glucose 116 mg/dL (70-100); HEMOLYSIS < 15 (0-50); Lipase 251 U/L (23-300); Magnesium 2.3 mg/dL (1.6-2.3); Potassium 3.6 mmol/L (3.4-5.1); Sodium 140 mmol/L (137-145); Total Protein 7.5 g/dL (6.3-8.2)
[2022-12-09 00:15] LABS: NT-proBNP (BNP-Adult 18+) 113 pg/mL (<125); Troponin I 0.014 ng/mL (0.01-0.034)
[2022-12-09] MEDS: ALBUTEROL/IPRATROPIUM 3 ML AMPUL INH (00:16)
[2022-12-09 00:27] LABS: Ethanol (ETOH) 239 mg/dL
[2022-12-09] MEDS: NICOTINE 21 MG PATCH TOP (03:00)
[2022-12-09 03:02] LABS: Creatine Kinase 130 U/L (55-170)
[2022-12-09 03:15] LABS: Troponin I 0.014 ng/mL (0.01-0.034)
== END 2022-12-09 05:37 | disposition home or self-care (01) ==
PROVIDERS: Emergency Provider Emergency Medicine
DX: R07.89 Other chest pain (principal); J44.9 Chronic obstructive pulmonary disease, unspecified; F10.129 Alcohol abuse with intoxication, unspecified; Y90.7 Blood alcohol level of 200-239 mg/100 ml; F17.200 Nicotine dependence, unspecified, uncomplicated
CPT/HCPCS: 36415; 71045; 80053; 80320; 82550; 83690; 83735; 83880; 84484; 85025; 93005; 94640; 99284